=== PATIENT | male | born 1940 | race Caucasian/White ===

== ENCOUNTER 2017-12-17 18:17 | Observation (INO) ==
[2017-12-17 15:24] LABS: Basophils % 0.3 % (0.1-2.0); Eosinophils # 0.1 K/mm3 (0.0-0.4); Hematocrit 45.3 % (42.0-52.0); Hemoglobin 14.7 g/dL (14.1-18.0); Lymphocytes % 14.8 % (10-50); Mean Corpuscular HGB Conc 32.6 g/dL (31.8-35.4); Mean Corpuscular Hemoglobin 30.8 pg (27.0-31.2); Mean Corpuscular Volume 94.5 fl (80-94); Mean Platelet Volume 7.7 fl (7.4-10.4); Monocytes # 0.8 K/mm3 (0.1-1.0); Neutrophils # 10.3 K/mm3 (1.8-7.8); Neutrophils % 77.9 % (37.0-80.0); Platelet Count 250 K/mm3 (142-424); Red Blood Count 4.79 M/mm3 (4.60-6.20); Red Cell Distribution Width 13.8 % (11.5-17.5); White Blood Count 13.2 K/mm3 (4.8-10.8)
--- NOTE | 2017-12-17 18:23 | Emergency Department Note ---
ED Disposition Clinical Impression: Acute appendicitis Qualifiers: Acute appendicitis type: with localized peritonitis Appendicitis gangrene presence: without gangrene Appendicitis perforation presence: without perforation Appendicitis abscess presence: without abscess Qualified Code(s): K35.30 - Acute appendicitis with localized peritonitis, without perforation or gangrene Disposition: Still a Patient Condition on Discharge: Good Referrals: Marbin Hill [Primary Care Provider] - - Critical Care Critical Care Time: No Attestation: On , the high probability of a clinically significant, sudden or life threatening deterioration of the following system(s) required my full and direct attention, intervention and personal management. The time I documented below is in addition to time spent performing reported procedures but includes the following listed in this critical care notation. Medical Decision Making - Jesus Inquiry Pt receiving controlled substance: No Vital Signs: 12/17/17 18:25 12/17/17 18:52 Temperature 98.1 F Temperature Source Oral Pulse Rate [Left Radial] 65 60 Respiratory Rate 18 Blood Pressure [Right Arm] 113/68 120/60 Blood Pressure Mean [Right Arm] 83 80 Blood Pressure Source [Right Arm] Automatic Cuff Automatic Cuff Blood Pressure Position [Right Arm] Sitting Sitting 02 Sat by Pulse Oximetry 94 L 96 - Lab Data Lab Results 12/17/17 18:40: Sodium 136, Potassium 4.2, Chloride 100, Carbon Dioxide 25, Anion Gap 15.2 H, BUN 16, Creatinine 1.00, Estimated Creat Clear 62, Estimated GFR 72, Est GFR ( Amer) 88, Glucose 96, Calcium 9.2 Result diagrams: 12/17/17 18:40 - CT Data CT Scan: Abdomen, Pelvis Time Received: 18:[address] Reviewed: Yes: I have viewed the radiologist's interpretation Findings Narrative: IMPRESSION: 1. The findings are compatible with acute appendicitis. There is an appendicolith. No evidence of abscess or perforation. 2. Other nonacute findings as described above including nodular opacities in the lung bases, hypodense lesions of the liver and kidneys consistent with cysts, pancreatic atrophy with fatty infiltration, and diverticulosis of the colon. Please see above for detail Significant findings called to Dr. Hill on 12/17/2017 6:00 PM. Dictated By: Zander rFeeman MD Signed By: <Electronically signed by Zander Freeman MD in [place]> 12/17/17 1801 - ECG Data Tracing #1 EKG interpreted by Shailesh Marsh MD: Rhythm: sinus Rate: 65 [place]: normal Ectopy: none Conduction: normal ST Segment Changes: none T Wave Changes: none Q Waves: none No evidence of acute ischemia or injury Baseline artifact present, but I consider the EKG adequate for accurate interpretation. Normal electrocardiogram - Physician Consults Physician Consulted: Alex Time: 19:03 Reason -: Surgical Eval/Care Comment/Response: He will see the patient in the ED. General Adult HPI - General Stated complaint: right side pain Time Seen by Provider: 12/17/17 18:21 - History of Present Illness HPI narrative: Periumbilical pain that started on Friday 2 days ago. Has migrated to his right lower quadrant where it has settled yesterday. Has not eaten anything today, ate very little yesterday. Nausea, but no vomiting or fever. No diarrhea or constipation. Saw Dr. Hill in the office today who ordered an outpatient CT scan of his abdomen which has shown appendicitis, sent to the emergency room. - Related Data Home Medications Medication Instructions Recorded Confirmed Calcium Carbonate/Vitamin D3 500 mg PO DAILY 12/17/17 12/17/17 [Oscal +D 500mg Tab] Ezetimibe 10 mg PO DAILY 12/17/17 12/17/17 Famotidine [Pepcid 20mg Tablet] 20 mg PO DAILY 12/17/17 12/17/17 Lisinopril [Lisinopril 40mg Tablet] 40 mg PO DAILY 12/17/17 12/17/17 Nadolol [Corgard 20mg tablet] 20 mg PO DAILY 12/17/17 12/17/17 Omeprazole [Omeprazole 20mg 20 mg PO DAILY 12/17/17 12/17/17 Capsule] Primidone [Mysoline] 250 mg PO DAILY 12/17/17 12/17/17 Simvastatin 40 mg PO DAILY 12/17/17 12/17/17 Topiramate 100 mg PO DAILY 12/17/17 12/17/17 Allergies Allergy/AdvReac Type Severity Reaction Status Date / Time No Known Allergies Allergy Unverified 01/28/17 15:13 [facility] History I have reviewed the patient's past medical history: Yes ROS Obtained: Yes All systems reviewed & no additional complaints - Constitutional Constitutional: Denies fever(s) - Cardiovascular Cardiovascular: Denies chest pain - Respiratory Respiratory: No dyspnea - Gastrointestinal Gastrointestingal: Reports: abdominal pain, nausea. Denies: diarrhea, vomiting - Genitourinary Male Genitourinary: Denies difficulty urinating, Denies flank pain Physical Exam - General General appearance: alert, in no apparent distress - Head Head exam: atraumatic, normocephalic - Eye Eye exam: Present: normal appearance, PERRL, EOMI - ENT ENT exam: Present: mucous membranes moist - Neck Neck exam: Present: normal inspection - Chest Chest inspection: Present: normal inspection, symmetric chest wall rise - Respiratory Respiratory exam: Present: normal lung sounds bilaterally. Absent: respiratory distress - Cardiovascular Cardiovascular exam: Present: regular rate, normal rhythm, normal heart sounds - Abdominal Exam Abdominal exam: Present: soft, tenderness, guarding, tenderness at McBurney's Point. Absent: distention Abdominal tenderness: Present: RLQ - Extremities Exam Extremities exam: Present: normal inspection - Neurological Exam Neurological exam: Present: alert, oriented X3 - Psychiatric Psychiatric exam: Present: normal affect, normal mood - Skin Skin exam: Present: warm, dry
[2017-12-17 18:58] LABS: Anion Gap 15.2 mEq/L (5-15); Calcium 9.2 mg/dL (8.5-10.1); Potassium 4.2 mmoL/L (3.5-5.1)
--- NOTE | 2017-12-17 19:17 | History & Physical Report ---
HPI HPI: Abdominal pain Patient is a 77-year-old white male. He states that he began experiencing abdominal pain in the periumbilical location approximately 2 days ago. He states that his abdomen is "sore". Yesterday it became more localized to the right lower quadrant. He contacted his primary care provider's office this morning and it was recommended he present to the office. He was seen in Dr. Hill's office. Appendicitis was suspected and he was sent for outpatient CT scan. He underwent CT scan which revealed findings consistent with acute appendicitis. He was sent to the emergency department for evaluation and surgical consultation was obtained. [facility] History I have reviewed the patient's past medical history: Yes Medical History: Reports:: Cancer (Prostate) Denies:: Diabetes Mellitus Type 1, Diabetes Mellitus Type 2 Laterality Cases: Left: Arthroscopy Knee, Total Hip Replacement - *Social History Alcohol Intake: never - Psychiatric History Expresses thoughts of harming self/others: None Suicide Plan Description: No Plan Review of Systems - Review of Systems Review of systems:: pertinent systems reviewed and negative unless documented below - Constitutional Reports anorexia - Eyes Denies blind spots - ENT Denies abnormal hearing - *Cardiovascular Denies chest pain - *Respiratory Denies shortness of breath - *Gastrointestinal Reports abdominal pain - *Genitourinary Denies difficulty urinating Meds Home Medications Medication Instructions Recorded Confirmed Type Calcium Carbonate/Vitamin D3 500 mg PO DAILY 12/17/17 12/17/17 History [Oscal +D 500mg Tab] Ezetimibe 10 mg PO DAILY 12/17/17 12/17/17 History Famotidine [Pepcid 20mg Tablet] 20 mg PO DAILY 12/17/17 12/17/17 History Lisinopril [Lisinopril 40mg Tablet] 40 mg PO DAILY 12/17/17 12/17/17 History Nadolol [Corgard 20mg tablet] 20 mg PO DAILY 12/17/17 12/17/17 History Omeprazole [Omeprazole 20mg 20 mg PO DAILY 12/17/17 12/17/17 History Capsule] Primidone [Mysoline] 250 mg PO DAILY 12/17/17 12/17/17 History Simvastatin 40 mg PO DAILY 12/17/17 12/17/17 History Topiramate 100 mg PO DAILY 12/17/17 12/17/17 History Allergies Allergy/AdvReac Type Severity Reaction Status Date / Time No Known Allergies Allergy Unverified 01/28/17 15:13 Exam Vital signs and Labs for Last 24 Hours: Temp Pulse Resp BP Pulse Ox 98.1 F 60 18 120/60 96 12/17/17 18:25 12/17/17 18:52 12/17/17 18:25 12/17/17 18:52 12/17/17 18:52 Laboratory Results - last 24 hr 12/17/17 18:40: Sodium 136, Potassium 4.2, Chloride 100, Carbon Dioxide 25, Anion Gap 15.2 H, BUN 16, Creatinine 1.00, Estimated Creat Clear 62, Estimated GFR 72, Est GFR ( Amer) 88, Glucose 96, Calcium 9.2 I & O for Last 24 hours: Intake & Output 12/15/17 12/16/17 12/17/17 12/18/17 11:59 11:59 11:59 11:59 Weight 155 lb - Constitutional no acute distress - *Routine HEENT Exam Head: Present: normocephalic - *Routine Respiratory Exam Present: CTA bilaterally - *Routine Cardiovascular Exam Present: RRR - *Routine Abdominal Exam Present: soft, tenderness, guarding. Absent: rebound Results - Results Lab Results Last 24 Hours:: Laboratory Results - last 24 hr 12/17/17 18:40: Sodium 136, Potassium 4.2, Chloride 100, Carbon Dioxide 25, Anion Gap 15.2 H, BUN 16, Creatinine 1.00, Estimated Creat Clear 62, Estimated GFR 72, Est GFR ( Amer) 88, Glucose 96, Calcium 9.2 Assessment and Plan - Assessment and plan all Dx Assessment and Plan for all problems:: Patient has acute appendicitis. Plan for emergent appendectomy. Attempt laparoscopic with possibly open appendectomy.
--- NOTE | 2017-12-17 20:50 | Operative Note ---
Date of procedure: 12/17/17 Pre-op Diagnosis:: Acute appendicitis Post-op Diagnosis:: Same Procedure performed:: Laparoscopic appendectomy Surgeon:: Chay Johnson MD UPWARD BOUND DIRECTOR:: Ran Thomas Anesthesia: JANNIE Estimated blood loss (mL): 20 Clinical Note:: Patient is a 77-year-old white male. He states that in the evening of 12/15/17 he began developing some mid abdominal pain. Yesterday this became localized to the right lower quadrant. He had contacted his primary physician today the stating that he was having abdominal pain and soreness. He was seen and evaluated. He was sent for outpatient CT scan which revealed findings of acute appendicitis. Patient was then sent to the emergency department for evaluation and surgical consultation. He was seen as a consultation and plan was made for emergent appendectomy. Operative findings:: Patient had a significantly inflamed suppurative appendicitis with some focal necrosis without obvious perforation Operative note:: Consent was obtained patient was taken to the operating room. He was given preoperative intravenous antibiotics. He had Zheng catheter placed for bladder decompression. Abdomen was prepped and draped in the standard surgical fashion. Subumbilical skin incision was made and while performing abdominal wall lift Veress needle was inserted. CO2 pneumoperitoneum was achieved to 15 mmHg. 12 mm optical trocar was inserted at the umbilicus. Peritoneal contents were visualized. There was cloudy turbid fluid in the pelvis and right paracolic region. He was positioned in Trendelenburg left side down. 5 mm trocar was inserted in the suprapubic location. Additional 5 mm trocar was inserted in the right upper abdomen. 5 mm 30 degree laparoscope was inserted through the right upper abdominal trocar site. The appendix was identified. It was adherent to the lateral abdominal sidewall. It was able to be freed from inflammatory adhesions to the abdominal sidewall. The appendix was markedly inflamed and suppurative with some surrounding fibrinopurulent exudate. It was grasped with an endoscopic [place]. The mesoappendix was carefully divided with Adrian ultrasonic harmonic yuliana with care taken to coagulate the appendiceal artery in the process. Dissection was carried down to the appendiceal base. The appendix was divided at its base with an endoscopic CHRIST linear cutting stapling device. The appendix was placed within an Endo Catch retrieval device and removed from the peritoneal cavity via the umbilical trocar site. Pelvis and pericecal region were irrigated and aspirated until clear. Staple line was inspected for hemostasis and integrity which was assured. Trochars were then re moved as CO2 pneumoperitoneum was evacuated. Fascia at the umbilicus was closed with a 0 Vicryl [id number] suture. Local anesthetic was infiltrated. Skin was closed with 4-0 Monocryl in a subcuticular fashion. Steri-Strips and dressings were applied. Condition: stable Disposition: PACU Specimens:: Appendix Complications:: None immediately apparent
--- NOTE | 2017-12-17 21:01 | Progress Note ---
[facility] Anesthesia Checklist - Patient Identification Patient Identification: Arm Band, Verbal (Name & ) - Structural Data Admitted From: Emergency Dept Planned Operative Procedure/s: lap appy Consent for Planned Operative Procedure(s) Verified: Yes Verified Documents: History and Physical - NPO Status Verified Time NPO: 00:00 - Additional verifications Patient : No Anesthesia Reactions: No Hx Blood Transfusions: No Blood Transfusion Reaction: No Cephalosporin Allergy: No Previous Colonoscopy: Yes - Cardiovascular Assessment Heart Sounds: S1 & S2 Pulse Strength: Baseline Pulse Rhythm: Regular Peripheral Edema: No - Airway Assessment C-Spine Mobility Assessed: Yes TMJ Mobility Assessed: Yes Dentition: Good Dentition - Neurological Assessment Level of Consciousness: Awake, Alert, Appropriate Hx Seizures: Yes Numbness or tingling in extremities: Yes - Anesthesia Plan Anesthesia Risk discussed: Yes ASA Class: III Anesthesia Type: General [facility] History I have reviewed the patient's past medical history: Yes Medical History: Reports:: Cancer (Prostate), Hyperlipidemia, Hypertension Denies:: Diabetes Mellitus Type 1, Diabetes Mellitus Type 2 Laterality Cases: Left: Arthroscopy Knee, Bilateral: Total Hip Replacement Amputation: No Fractures: No - *Social History Alcohol Intake: never - Psychiatric History Expresses thoughts of harming self/others: None Suicide Plan Description: No Plan
--- NOTE | 2017-12-17 21:03 | Progress Note ---
[facility] Anesthesia Record Part II Discharge Time: 21:25 Destination: Medical Surgical Department PACU nurse assessment reviewed?: Yes Patient Condition:: Good Anesthesia Complications:: None
--- NOTE | 2017-12-17 21:03 | Progress Note ---
[facility] Anesthesia Record Part I Intake, IV Amount: 450 Estimated blood loss (mL): 10 Urine output (mL): 30 Blood Products used (#): none Blood Pressure: 108/58 SaO2: 94 Pulse Rate: 61 Respiratory Rate: 18 Temperature: 97.5 F Patient is:: Drowsy, Mask O2, Stable Stable to PACU at:: 20:55
[2017-12-18 06:54] LABS: Basophils % 0.3 % (0.1-2.0); Eosinophils % 0.1 % (0.1-12.0); Hematocrit 41.6 % (42.0-52.0); Hemoglobin 13.3 g/dL (14.1-18.0); Lymphocytes # 1.5 K/mm3 (0.7-4.5); Lymphocytes % 16.3 % (10-50); Mean Corpuscular HGB Conc 31.8 g/dL (31.8-35.4); Mean Corpuscular Hemoglobin 30.6 pg (27.0-31.2); Mean Corpuscular Volume 96.1 fl (80-94); Mean Platelet Volume 7.6 fl (7.4-10.4); Monocytes # 0.5 K/mm3 (0.1-1.0); Monocytes % 5.3 % (1.7-9.3); Neutrophils # 7.4 K/mm3 (1.8-7.8); Neutrophils % 78.1 % (37.0-80.0); Platelet Count 206 K/mm3 (142-424); Red Blood Count 4.33 M/mm3 (4.60-6.20); Red Cell Distribution Width 13.8 % (11.5-17.5); White Blood Count 9.4 K/mm3 (4.8-10.8)
[2017-12-18 07:02] LABS: Anion Gap 15.2 mEq/L (5-15); Calcium 8.6 mg/dL (8.5-10.1); Potassium 5.2 mmoL/L (3.5-5.1)
--- NOTE | 2017-12-18 08:11 | Pharmacy Consult Notes ---
[facility] Pharmacy VTE Monitoring - Patient Demographics Admission date: 12/17/17 Report Date: 12/18/17 Time: 08:11 Allergies/Adverse Reactions: Patient Allergies No Known Allergies Allergy (Verified 12/17/17 22:24) Height: 1.63 m Weight: 69.882 kg Patient Problems: Current Active Problems Acute appendicitis (Acute) - VTE Risk Labs: VTE Related Lab Results Hgb 13.3 g/dL (14.1-18.0) L 12/18/17 06:15 Hct 41.6 % (42.0-52.0) L 12/18/17 06:15 Plt Count 206 K/mm3 (142-424) 12/18/17 06:15 BUN 16 mg/dL (7-18) 12/18/17 06:15 Creatinine 1.09 mg/dL (0.70-1.30) 12/18/17 06:15 Estimated Creat Clear 56 mL/min (0-300) 12/18/17 06:15 Was VTE Risk Assessment Performed: Yes VTE Score: 7 VTE Risk Level: Moderate Risk Clinical Trial Participant: No - Prophylaxis VTE Prophylaxis Ordered?: Yes Types of VTE Prophylaxis: TEDS Knee High Location of Applied Device: Bilateral Lower Extremeties
--- NOTE | 2017-12-18 08:15 | Progress Note ---
Subjective Narrative: Patient complains of sore throat. Complains of pain at umbilical area. Minimal oral intake. Exam Vital signs and Labs for Last 24 Hours: Temp Pulse Resp BP Pulse Ox 98.4 F 75 16 107/68 L 95 12/18/17 04:15 12/18/17 04:15 12/18/17 04:15 12/18/17 04:15 12/18/17 04:15 Laboratory Results - last 24 hr 12/17/17 18:40: Sodium 136, Potassium 4.2, Chloride 100, Carbon Dioxide 25, Anion Gap 15.2 H, BUN 16, Creatinine 1.00, Estimated Creat Clear 62, Estimated GFR 72, Est GFR ( Amer) 88, Glucose 96, Calcium 9.2 12/18/17 06:15: WBC 9.4 D, RBC 4.33 L, Hgb 13.3 L, Hct 41.6 L, MCV 96.1 H, MCH 30.6, MCHC 31.8, RDW 13.8, Plt Count 206, MPV 7.6, Neut % (Auto) 78.1, Lymph % (Auto) 16.3, [place] % (Auto) 5.3, Eos % (Auto) 0.1, Baso % (Auto) 0.3, Neut # (Auto) 7.4, Lymph # (Auto) 1.5, [place] # (Auto) 0.5, Eos # (Auto) 0.0, Baso # (Auto) 0.0 12/18/17 06:15: Sodium 138, Potassium 5.2 H D, Chloride 102, Carbon Dioxide 26, Anion Gap 15.2 H, BUN 16, Creatinine 1.09, Estimated Creat Clear 56, Estimated GFR 66, Est GFR ( Amer) 79, Glucose 90, Calcium 8.6 I & O for Last 24 hours: Intake & Output 12/15/17 12/16/17 12/17/17 12/18/17 11:59 11:59 11:59 11:59 Intake Total 1703 / 1703 Output Total 202 / 202 Balance 1501 / 1501 Weight 154 lb 1 oz - *Routine Abdominal Exam Present: soft, distended Progress Note: A&P Assessment and Plan for All Diagnoses:: Patient has evidence of mild post-op ileus characterized by distension. Minimal oral intake. Has not ambulated. Ambulate patient. Continue IV antibiotics today. Recheck potassium in the morning due to finding of mild hyperkalemia on blood work this morning.
--- NOTE | 2017-12-18 10:38 | Progress Note ---
Internal Medicine - PN: Subj *Date: 12/18/17 *Time: 09:30 Interval history: Internal Medicine Consult Mr. Greenberg is a 77 year old male with a history of HTN, hyperlipidemia, prostate cancer with prostatectomy 5 years ago, cancerous growth left foot and chronic left hand tremor. He underwent laproscopic appendectomy last evening for appendicitis. See operative note. Patient has been followed closely by urology, oncology and neurology for his chronic medical conditions. Previous visits have been unremarkable with no recurrence. He had no CV or pulmonary history with exception of HTN which has been well controlled. He denies any chest pain, shortness of breath or other CV symptoms. He walks for 20 minutes most days without difficulty. Labs reviewed which look good with exception of mild hyperkalemia. Possible related to slight hemolysis as potassium was normal on admission. He is using the urinal without difficulty. Has has urinary frequency which is at baseline, this has been an ongoing issue since his prostatectomy. Denies other urinary symptoms. No cough or shortness of breath. Reports some abdominal distention, mild pain. He was able to get out of bed to the chair with PT without dizziness or significant pain. Patient reports minimal oral intake. He is not passing any gas at this point. Exam Vital signs and Labs for Last 24 Hours: Temp Pulse Resp BP Pulse Ox 98.6 F 72 18 111/63 93 L 12/18/17 08:00 12/18/17 08:00 12/18/17 08:00 12/18/17 08:00 12/18/17 08:00 Laboratory Results - last 24 hr 12/17/17 18:40: Sodium 136, Potassium 4.2, Chloride 100, Carbon Dioxide 25, Anion Gap 15.2 H, BUN 16, Creatinine 1.00, Estimated Creat Clear 62, Estimated GFR 72, Est GFR ( Amer) 88, Glucose 96, Calcium 9.2 12/18/17 06:15: WBC 9.4 D, RBC 4.33 L, Hgb 13.3 L, Hct 41.6 L, MCV 96.1 H, MCH 30.6, MCHC 31.8, RDW 13.8, Plt Count 206, MPV 7.6, Neut % (Auto) 78.1, Lymph % (Auto) 16.3, [place] % (Auto) 5.3, Eos % (Auto) 0.1, Baso % (Auto) 0.3, Neut # (Auto) 7.4, Lymph # (Auto) 1.5, [place] # (Auto) 0.5, Eos # (Auto) 0.0, Baso # (Auto) 0.0 12/18/17 06:15: Sodium 138, Potassium 5.2 H D, Chloride 102, Carbon Dioxide 26, Anion Gap 15.2 H, BUN 16, Creatinine 1.09, Estimated Creat Clear 56, Estimated GFR 66, Est GFR ( Amer) 79, Glucose 90, Calcium 8.6 I & O for Last 24 hours: Intake & Output 12/15/17 12/16/17 12/17/17 12/18/17 11:59 11:59 11:59 11:59 Intake Total 1703 / 1703 Output Total Balance 1501 / 1501 Weight 154 lb 1 oz Narrative: Alert and oriented x3. Rate and rhythm regular. No murmur. No JVD. No carotid bruit. Trace LE edema. Lung sounds clear and equal. Abdomen is noted to be somwehat distended, steri-strips clean, dry and intact. Complete abdominal assessment deferred to Dr. Johnson. Clear, yellow urine noted in urinal. Assessment and Plan (1) History of prostatectomy Current visit: Yes Status: Chronic Category: Surgical Code(s): Z90.79 - Acquired absence of other genital organ(s) (2) H/O prostate cancer Current visit: Yes Status: Chronic Category: Medical Code(s): Z85.46 - Personal history of malignant neoplasm of prostate (3) Essential (primary) hypertension Current visit: Yes Status: Chronic Category: Medical Code(s): I10 - Essential (primary) hypertension (4) Hyperkalemia Current visit: Yes Status: Acute Category: Medical Code(s): E87.5 - Hyperkalemia (5) Tremor of left hand Current visit: Yes Status: Chronic Category: Medical Code(s): R25.1 - Tremor, unspecified (6) Acute appendicitis Current visit: Yes Status: Acute Qualifiers: Acute appendicitis type: with localized peritonitis Appendicitis gangrene presence: without gangrene Appendicitis perforation presence: without perforation Appendicitis abscess presence: without abscess Qualified Code(s): K35.30 - Acute appendicitis with localized peritonitis, without perforation or gangrene Category: Medical Code(s): K35.80 - Unspecified acute appendicitis - Assessment and plan all Dx Assessment and Plan for all problems:: Home meds reviewed and have been restarted appropriately. Decrease IVF's. Repeat potassium in the am. Start incentive spirometry 10 times per hour while awake.
[2017-12-19 06:44] LABS: Anion Gap 14.2 mEq/L (5-15); Calcium 8.2 mg/dL (8.5-10.1); Potassium 3.2 mmoL/L (3.5-5.1)
[2017-12-19 06:45] LABS: Basophils % 0.5 % (0.1-2.0); Eosinophils # 0.1 K/mm3 (0.0-0.4); Eosinophils % 2.1 % (0.1-12.0); Hematocrit 35.2 % (42.0-52.0); Lymphocytes # 1.3 K/mm3 (0.7-4.5); Mean Corpuscular HGB Conc 32.2 g/dL (31.8-35.4); Mean Corpuscular Hemoglobin 30.8 pg (27.0-31.2); Mean Corpuscular Volume 95.7 fl (80-94); Mean Platelet Volume 7.8 fl (7.4-10.4); Monocytes # 0.5 K/mm3 (0.1-1.0); Monocytes % 9.4 % (1.7-9.3); Neutrophils # 3.4 K/mm3 (1.8-7.8); Neutrophils % 63.1 % (37.0-80.0); Platelet Count 198 K/mm3 (142-424); Red Blood Count 3.68 M/mm3 (4.60-6.20); Red Cell Distribution Width 13.9 % (11.5-17.5); White Blood Count 5.3 K/mm3 (4.8-10.8)
[2017-12-19 06:54] LABS: Hemoglobin 11.4 g/dL (14.1-18.0)
--- NOTE | 2017-12-19 08:04 | Progress Note ---
Subjective Patient reports: feels better Narrative: Has had a couple of bowel movements. Exam Vital signs and Labs for Last 24 Hours: Temp Pulse Resp BP Pulse Ox 97.8 F 60 18 100/50 L 96 12/19/17 04:00 12/19/17 04:00 12/19/17 04:00 12/19/17 04:00 12/19/17 04:00 Laboratory Results - last 24 hr 12/17/17 : WBC 13.2 H, RBC 4.79, Hgb 14.7, Hct 45.3, MCV 94.5 H, MCH 30.8, MCHC 32.6, RDW 13.8, Plt Count 250, MPV 7.7, Neut % (Auto) 77.9, Lymph % (Auto) 14.8, [place] % (Auto) 6.0, Eos % (Auto) 1.0, Baso % (Auto) 0.3, Neut # (Auto) 10.3 H, Lymph # (Auto) 2.0, [place] # (Auto) 0.8, Eos # (Auto) 0.1, Baso # (Auto) 0.0 12/17/17 : Urine Color Yellow, Urine Appearance Clear, Urine pH 5.5, Ur Specific [place] >= 1.030, Urine Protein Negative, Urine Glucose (UA) Negative, Urine Ketones 1+, Urine Blood 1+, Urine Nitrate Negative, Urine Bilirubin Negative, Urine Urobilinogen 0.2, Ur Leukocyte Esterase Negative, Urine RBC 5-10, Urine WBC Occasional, Urine Bacteria 1+ 12/19/17 06:02: WBC 5.3 D, RBC 3.68 L, Hgb 11.4 L D, Hct 35.2 L, MCV 95.7 H, MCH 30.8, MCHC 32.2, RDW 13.9, Plt Count 198, MPV 7.8, Neut % (Auto) 63.1, Lymph % (Auto) 25.0, [place] % (Auto) 9.4 H, Eos % (Auto) 2.1, Baso % (Auto) 0.5, Neut # (Auto) 3.4, Lymph # (Auto) 1.3, [place] # (Auto) 0.5, Eos # (Auto) 0.1, Baso # (Auto) 0.0 12/19/17 06:02: Sodium 141, Potassium 3.2 L D, Chloride 106, Carbon Dioxide 24, Anion Gap 14.2, BUN 12, Creatinine 0.99, Estimated Creat Clear 61, Estimated GFR 73, Est GFR ( Amer) 89, Glucose 84, Calcium 8.2 L I & O for Last 24 hours: Intake & Output 12/16/17 12/17/17 12/18/17 12/19/17 11:59 11:59 11:59 11:59 Intake Total 2633 / 2633 2444 / 2444 Output Total 232 / 232 350 / 350 Balance 2401 / 2401 2093 / 2093 Weight 154 lb 1 oz - *Routine Abdominal Exam Present: soft. Absent: tenderness Progress Note: A&P (1) History of prostatectomy Status: Chronic Current Visit: Yes (2) H/O prostate cancer Status: Chronic Current Visit: Yes (3) Essential (primary) hypertension Status: Chronic Current Visit: Yes (4) Hyperkalemia Status: Acute Current Visit: Yes (5) Tremor of left hand Status: Chronic Current Visit: Yes (6) Acute appendicitis Status: Acute Current Visit: Yes Assessment and Plan for All Diagnoses:: Discharge home.
--- NOTE | 2017-12-19 08:09 | Discharge Summary ---
General - General Admission date:: 12/17/17 Discharge date: 12/19/17 HPI HPI: Patient is a 77-year-old white male. He states that in the evening of 12/15/17 he began developing some mid abdominal periumbilical pain. On 12/16/17 this became localized to the right lower quadrant. He had contacted his primary physician on 12/17/17 stating that he was having abdominal pain and soreness. He was seen and evaluated. He was sent for outpatient CT scan which revealed findings of acute appendicitis. Patient was then sent to the emergency department for evaluation and surgical consultation. He was seen as a consultation and plan was made for emergent appendectomy. Hospital Course Hospital Course: Was taken directly to the operating room at which time he underwent laparoscopic appendectomy. He was found to have a significantly inflamed acute appendicitis with some focal necrosis but without perforation or established diffuse peritonitis. Please see operative dictation for complete details. He was admitted postoperatively and continued on perioperative antibiotics of Zosyn. He was given a full liquid diet. The following morning patient had minimal oral intake. He had some complaints of sore throat and umbilical soreness. He had not ambulated. Interestingly potassium on postoperative day #1 was 5.2. Internal medicine was consulted. Patient was ambulated several times in the hallways with nursing assistance. He tolerated full liquid diet without difficulty and had a couple of bowel movements. The following morning, on postop day #2, his white blood cell count was normalized, potassium was 3.2. Arrangements were made for discharge home at that time. Objective Vital signs: Temp Pulse Resp BP Pulse Ox 97.8 F 60 18 100/50 L 96 12/19/17 04:00 12/19/17 04:00 12/19/17 04:00 12/19/17 04:00 12/19/17 04:00 - *Routine HEENT Exam Head: Present: normocephalic - *Routine Abdominal Exam Present: soft Results Labs on day of discharge: Labs from last 24 hours 12/19/17 12/19/17 12/17/17 06:02 06:02 Unknown WBC 5.3 D RBC 3.68 L Hgb 11.4 L D Hct 35.2 L MCV 95.7 H MCH 30.8 MCHC 32.2 RDW 13.9 Plt Count 198 MPV 7.8 Neut % (Auto) 63.1 Lymph % (Auto) 25.0 [place] % (Auto) 9.4 H Eos % (Auto) 2.1 Baso % (Auto) 0.5 Neut # (Auto) 3.4 Lymph # (Auto) 1.3 Howard # (Auto) 0.5 Eos # (Auto) 0.1 Baso # (Auto) 0.0 Sodium 141 Potassium 3.2 L D Chloride 106 Carbon Dioxide 24 Anion Gap 14.2 BUN 12 Creatinine 0.99 Estimated Creat Clear 61 Estimated GFR 73 Est GFR ( Amer) 89 Glucose 84 Calcium 8.2 L Urine Color Yellow Urine Appearance Clear Urine pH 5.5 Ur Specific [place] >= 1.030 Urine Protein Negative Urine Glucose (UA) Negative Urine Ketones 1+ Urine Blood 1+ Urine Nitrate Negative Urine Bilirubin Negative Urine Urobilinogen 0.2 Ur Leukocyte Esterase Negative Urine RBC 5-10 Urine WBC Occasional Urine Bacteria 1+ 12/17/17 Unknown WBC 13.2 H RBC 4.79 Hgb 14.7 Hct 45.3 MCV 94.5 H MCH 30.8 MCHC 32.6 RDW 13.8 Plt Count 250 MPV 7.7 Neut % (Auto) 77.9 Lymph % (Auto) 14.8 Howard % (Auto) 6.0 Eos % (Auto) 1.0 Baso % (Auto) 0.3 Neut # (Auto) 10.3 H Lymph # (Auto) 2.0 Howard # (Auto) 0.8 Eos # (Auto) 0.1 Baso # (Auto) 0.0 Sodium Potassium Chloride Carbon Dioxide Anion Gap BUN Creatinine Estimated Creat Clear Estimated GFR Est GFR ( Amer) Glucose Calcium Urine Color Urine Appearance Urine pH Ur Specific [place] Urine Protein Urine Glucose (UA) Urine Ketones Urine Blood Urine Nitrate Urine Bilirubin Urine Urobilinogen Ur Leukocyte Esterase Urine RBC Urine WBC Urine Bacteria DS: Diagnosis - Discharge Diagnosis (1) History of prostatectomy Status: Chronic (2) H/O prostate cancer Status: Chronic (3) Essential (primary) hypertension Status: Chronic (4) Hyperkalemia Status: Acute (5) Tremor of left hand Status: Chronic (6) Acute appendicitis Status: Acute Discharge Plan - Patient Discharge Instructions ACTIVITY: No heavy lifting DIET: advance to your usual diet Patient Instructions: DI for Surgical Site Infection - Follow up Plan Follow up with: Marbin Hill [Primary Care Provider] - Chay Johnson MD [Staff Physician] - 2 weeks Disposition: Home, Self-Half-Way Medications: Home Medications Medication Instructions Recorded Confirmed Type Calcium Carbonate/Vitamin D3 500 mg PO DAILY 12/17/17 12/17/17 History [Oscal +D 500mg Tab] Ezetimibe 10 mg PO DAILY 12/17/17 12/17/17 History Famotidine [Pepcid 20mg Tablet] 20 mg PO HS 12/17/17 12/18/17 History Lisinopril [Lisinopril 40mg Tablet] 40 mg PO DAILY 12/17/17 12/17/17 History Nadolol [Corgard 20mg tablet] 20 mg PO DAILY 12/17/17 12/17/17 History Omeprazole [Omeprazole 20mg 20 mg PO DAILY 12/17/17 12/17/17 History Capsule] Primidone [Mysoline] 250 mg PO DAILY 12/17/17 12/17/17 History Simvastatin 40 mg PO HS 12/17/17 12/18/17 History Topiramate 100 mg PO DAILY 12/17/17 12/17/17 History Prescriptions/Medication Reconciliation: Continue Simvastatin 40 mg PO HS Primidone [Mysoline] 250 mg PO DAILY Omeprazole [Omeprazole 20mg Capsule] 20 mg PO DAILY Nadolol [Corgard 20mg tablet] 20 mg PO DAILY Lisinopril [Lisinopril 40mg Tablet] 40 mg PO DAILY Famotidine [Pepcid 20mg Tablet] 20 mg PO HS Ezetimibe 10 mg PO DAILY Calcium Carbonate/Vitamin D3 [Oscal +D 500mg Tab] 500 mg PO DAILY Topiramate 100 mg PO DAILY
--- NOTE | 2017-12-19 09:00 | Progress Note ---
Internal Medicine - PN: Subj *Date: 12/19/17 *Time: 09:00 Interval history: Patient did well overnight. Tolerating oral intake. Is passing gas and had 2 bowel movements last night. Minimal abdominal pain today. Denies any chest pain, shortness of breath, cough, fevers. Dynamically stable Exam Vital signs and Labs for Last 24 Hours: Temp Pulse Resp BP Pulse Ox 97.8 F 60 18 100/50 L 96 12/19/17 04:00 12/19/17 04:00 12/19/17 04:00 12/19/17 04:00 12/19/17 04:00 Laboratory Results - last 24 hr 12/17/17 : WBC 13.2 H, RBC 4.79, Hgb 14.7, Hct 45.3, MCV 94.5 H, MCH 30.8, MCHC 32.6, RDW 13.8, Plt Count 250, MPV 7.7, Neut % (Auto) 77.9, Lymph % (Auto) 14.8, [place] % (Auto) 6.0, Eos % (Auto) 1.0, Baso % (Auto) 0.3, Neut # (Auto) 10.3 H, Lymph # (Auto) 2.0, [place] # (Auto) 0.8, Eos # (Auto) 0.1, Baso # (Auto) 0.0 12/17/17 : Urine Color Yellow, Urine Appearance Clear, Urine pH 5.5, Ur Specific [place] >= 1.030, Urine Protein Negative, Urine Glucose (UA) Negative, Urine Ketones 1+, Urine Blood 1+, Urine Nitrate Negative, Urine Bilirubin Negative, Urine Urobilinogen 0.2, Ur Leukocyte Esterase Negative, Urine RBC 5-10, Urine WBC Occasional, Urine Bacteria 1+ 12/19/17 06:02: WBC 5.3 D, RBC 3.68 L, Hgb 11.4 L D, Hct 35.2 L, MCV 95.7 H, MCH 30.8, MCHC 32.2, RDW 13.9, Plt Count 198, MPV 7.8, Neut % (Auto) 63.1, Lymph % (Auto) 25.0, [place] % (Auto) 9.4 H, Eos % (Auto) 2.1, Baso % (Auto) 0.5, Neut # (Auto) 3.4, Lymph # (Auto) 1.3, [place] # (Auto) 0.5, Eos # (Auto) 0.1, Baso # (Auto) 0.0 12/19/17 06:02: Sodium 141, Potassium 3.2 L D, Chloride 106, Carbon Dioxide 24, Anion Gap 14.2, BUN 12, Creatinine 0.99, Estimated Creat Clear 61, Estimated GFR 73, Est GFR ( Amer) 89, Glucose 84, Calcium 8.2 L I & O for Last 24 hours: Intake & Output 12/16/17 12/17/17 12/18/17 12/19/17 23:59 23:59 23:59 23:59 Intake Total 1225 / 1225 2968 / 2968 884 / 884 Output Total 552 / 552 Balance 1195 / 1195 2416 / 2416 884 / 884 Weight 69.882 kg 69.882 kg Narrative: Alert and oriented x3. Rate and rhythm regular. No murmur. No JVD. No carotid bruit. Trace LE edema. Lung sounds clear and equal. Abdomen is noted to be somwehat distended, steri-strips clean, dry and intact. Minimal tenderne ss in abdomen. No bleeding from surgical incisions. Assessment and Plan (1) History of prostatectomy Current visit: Yes Status: Chronic Category: Surgical Code(s): Z90.79 - Acquired absence of other genital organ(s) (2) H/O prostate cancer Current visit: Yes Status: Chronic Category: Medical Code(s): Z85.46 - Personal history of malignant neoplasm of prostate (3) Essential (primary) hypertension Current visit: Yes Status: Chronic Category: Medical Code(s): I10 - Essential (primary) hypertension (4) Hyperkalemia Current visit: Yes Status: Acute Category: Medical Code(s): E87.5 - Hyperkalemia (5) Tremor of left hand Current visit: Yes Status: Chronic Category: Medical Code(s): R25.1 - Tremor, unspecified (6) Acute appendicitis Current visit: Yes Status: Acute Qualifiers: Acute appendicitis type: with localized peritonitis Appendicitis gangrene presence: without gangrene Appendicitis perforation presence: without perforation Appendicitis abscess presence: without abscess Qualified Code(s): K35.30 - Acute appendicitis with localized peritonitis, without perforation or gangrene Category: Medical Code(s): K35.80 - Unspecified acute appendicitis - Assessment and plan all Dx Assessment and Plan for all problems:: Patient tolerating oral intake. Medically stable for discharge home, agree with plan per surgery's note. Resume all home medications.
== END 2017-12-19 10:07 | disposition home or self-care (01) ==
LOC: ER 18:17 → SDC 19:43 → 2ND 19:43 → ER 19:44
PROVIDERS: ADMIT Surgery; ATTEND Surgery

== ENCOUNTER → 2018-01-15 11:59 | Outpatient (CLI) | payer MEDICARE, BC, SELFPAY ==
[2018-01-15 13:12] LABS: Blood Urea Nitrogen 14 mg/dL (7-18); Estimated Glomerular Filt Rate 82 ml/min (>60); GFR (African American) 99 ML/MIN (>60)
== END ==
PROVIDERS: Visit Provider Surgery
DX: K35.80 Unspecified acute appendicitis (principal)
CPT/HCPCS: 36415; 82565; 84520

== ENCOUNTER → 2018-01-16 09:47 | Outpatient (CLI) | payer MEDICARE, BC, SELFPAY ==
--- NOTE | 2018-01-16 09:48 | CT_ITS ---
CT abdomen pelvis w con CLINICAL INDICATION: Lower abdominal pain ITS.REASON: abdominal pain ORDERING PHYSICIAN: Chay Johnson MD PATIENT AGE: 77 years COMPARISON: None TECHNIQUE: Axial images obtained with sagittal and coronal reformats. All CT scans at the facility use one or more dose reduction, viz: automated exposure control, ma/kV adjustment per patient size (including targeted exams where dose is matched to indication, i.e. head), or iterative reconstruction technique. PROCEDURE: Oral Contrast: Redicat IV Contrast: 75 mL of Isovue-370. FINDINGS: There is a 4 mm noncalcified nodule in the right lung base which is incompletely imaged probably unchanged. There are coronary artery calcifications. There are mild fibrotic changes in the left lung base. There are at least 3 hypodensities of the liver the largest in the right hepatic lobe posterior laterally is 7 mm and may be due to small cysts. The gallbladder has an unremarkable appearance as does the spleen and right adrenal gland. There is diffuse fatty infiltration of the pancreas. Nodularity involves the left adrenal gland is unchanged. There are bilateral renal cysts measuring up to 6 cm in the lower pole on the right. No hydronephrosis. No renal or ureteral calculi are evident. There has been an interval appendectomy. No evidence of abscess or fluid collection at the lobectomy site. There is a small amount fluid in the the pelvis and is nonspecific. Considerable artifact is present from bilateral hip prosthesis. Multilevel degenerative disc disease noted. IMPRESSION: 1. Interval appendectomy. 2. No evidence of abscess. No radio opaque foreign bodies other than the bilateral hip prosthesis. 3. Small amount of fluid in the pelvis nonspecific 4. Other nonacute findings as described above
== END ==
PROVIDERS: PCP Internal Medicine; Visit Provider Surgery
DX: K35.80 Unspecified acute appendicitis (principal)
CPT/HCPCS: 74177; Q9967

== ENCOUNTER → 2018-07-30 15:27 | Outpatient (CLI) | payer MEDICARE, BC, SELFPAY ==
[2018-07-30 15:55] LABS: Basophils # 0.1 K/mm3 (0-0.2); Basophils % 0.9 % (0.1-2.0); Eosinophils # 0.2 K/mm3 (0.0-0.4); Eosinophils % 2.6 % (0.1-12.0); Hemoglobin 13.8 g/dL (14.1-18.0); Lymphocytes # 2.1 K/mm3 (0.7-4.5); Lymphocytes % 32.8 % (10-50); Mean Corpuscular HGB Conc 30.6 g/dL (31.8-35.4); Mean Corpuscular Hemoglobin 28.7 pg (27.0-31.2); Mean Corpuscular Volume 93.7 fl (80-94); Mean Platelet Volume 7.5 fl (7.4-10.4); Monocytes # 0.4 K/mm3 (0.1-1.0); Neutrophils # 3.7 K/mm3 (1.8-7.8); Neutrophils % 57.8 % (37.0-80.0); Platelet Count 290 K/mm3 (142-424); Red Blood Count 4.81 M/mm3 (4.60-6.20); Red Cell Distribution Width 13.8 % (11.5-17.5); White Blood Count 6.4 K/mm3 (4.8-10.8)
[2018-07-30 16:52] LABS: Alanine Aminotransferase 21 U/L (12-78); Albumin Level 3.6 gm/dL (3.4-5.0); Albumin/Globulin Ratio 1.1 (1.1-1.8); Alkaline Phosphatase 89 U/L (46-116); Anion Gap 15.6 mEq/L (5-15); Aspartate Amino Transferase 18 U/L (15-37); Bilirubin,Total 0.3 mg/dL (0.2-1.0); Blood Urea Nitrogen 16 mg/dL (7-18); Calcium 8.9 mg/dL (8.5-10.1); Carbon Dioxide 25 mmol/L (21.0-32.0); Chloride 105 mmol/L (98-107); Creatinine,Serum 0.99 mg/dL (0.70-1.30); Estimated Glomerular Filt Rate 73 ml/min (>60); GFR (African American) 89 ML/MIN (>60); Globulin 3.4 gm/dl (1.3-3.2); Glucose 91 mg/dL (74-106); Potassium 4.6 mmoL/L (3.5-5.1); Sodium 141 mmol/L (136-145)
== END ==
PROVIDERS: PCP Internal Medicine; Visit Provider Otolaryngology
DX: Z01.818 Encounter for other preprocedural examination (principal); L98.9 Disorder of the skin and subcutaneous tissue, unspecified
CPT/HCPCS: 36415; 80053; 85025; 93005

== ENCOUNTER → 2018-11-13 10:23 | Outpatient (CLI) | payer MEDICARE, BC, SELFPAY ==
[2018-11-13 10:48] LABS: Basophils # 0.1 K/mm3 (0-0.2); Basophils % 1.2 % (0.1-2.0); Eosinophils # 0.2 K/mm3 (0.0-0.4); Eosinophils % 2.2 % (0.1-12.0); Hematocrit 44.1 % (42.0-52.0); Lymphocytes # 2.1 K/mm3 (0.7-4.5); Lymphocytes % 29.6 % (10-50); Mean Corpuscular HGB Conc 31.7 g/dL (31.8-35.4); Mean Corpuscular Hemoglobin 30.9 pg (27.0-31.2); Mean Corpuscular Volume 97.3 fl (80-94); Mean Platelet Volume 7.6 fl (7.4-10.4); Monocytes # 0.4 K/mm3 (0.1-1.0); Neutrophils # 4.3 K/mm3 (1.8-7.8); Neutrophils % 61.1 % (37.0-80.0); Platelet Count 267 K/mm3 (142-424); Red Blood Count 4.53 M/mm3 (4.60-6.20)
--- NOTE | 2018-11-13 11:32 | CT_ITS ---
PROCEDURE: CT ABDOMEN PELVIS WO CON CLINICAL HISTORY: RT SIDE PAIN,KIDNEY STONE PROTOCOL,BLOOD IN URINE COMPARISON: 01/16/2018. TECHNIQUE: Axial images obtained with sagittal and coronal reformats. All CT scans at the facility use one or more dose reduction, viz: automated exposure control, ma/kV adjustment per patient size (including targeted exams where dose is matched to indication, i.e. head), or iterative reconstruction technique. FINDINGS: There is a 5.7 millimeter noncalcified nodule involving lateral segment right middle lobe, image 7. There is a no other small oval-shaped noncalcified nodular focus measuring 5 millimeters a adjacent to the right major fissure. There is a stable 5 millimeter hypodense focus in the periphery of the liver which is nonspecific although likely benign. Gallbladder and pancreas are stable with stable fatty infiltration of the pancreas which could occur with diabetes. Spleen is normal. There is stable adrenal gland shape enlargement of the left adrenal gland suggesting hyperplasia. Right adrenal gland is normal. There are fluid attenuation renal cortical lesions bilaterally suggesting cysts. There are no renal stones and there is no hydronephrosis or hydroureter or ureteral stone. There is no aortic dilatation. GI tract is in unremarkable. Because of the metallic densities involving the hip areas there is artifact which obscures most of the pelvic structures. Urinary bladder cannot be adequately evaluated because of the artifact. There is no acute osseous process. IMPRESSION: Liver and renal hypodense lesions are stable and likely benign. Noncalcified right middle lobe nodule and adjacent to the right major fissure were not in the field of view on the prior exam. Because of size suggest follow-up CT chest at 6-12 months. No renal stones or renal obstructive changes. If symptoms persist especially if gross hematuria suggest urologic consultation since urinary bladder cannot be well seen on this study because of the artifact. Not discussed above are stable nodular densities partially calcified involving the posterior left subcutaneous soft tissues at the lower pelvic area likely from injection granulomas. Dictated by: Alden Clifford 11/13/2018 12:52 Electronically signed by Alden Clifford in [place] 11/13/2018 12:52
== END ==
LOC: LAB.DROPOF 10:28 → RAD 11:22
PROVIDERS: PCP Internal Medicine; Visit Provider Internal Medicine
DX: R10.31 Right lower quadrant pain (principal)
CPT/HCPCS: 74176; 85025

== ENCOUNTER → 2019-12-24 14:06 | Outpatient (CLI) | payer MEDICARE, BC, SELFPAY ==
--- NOTE | 2019-12-24 14:09 | CT_ITS ---
PROCEDURE: CT CHEST WO CON follow up, lung nodule...seen on A/P, 11/13/18 no symptoms at this time CLINICAL INDICATION: R MIDDLE LOBE NODULE, 6 MONTH FOLLOW UP COMPARISON: CR CXR CHEST(2 VIEWS-NOT PORTABLE) from 02/04/[address] ABDOMEN PELVIS WO CON from 11/13/2018 TECHNIQUE: Axial images obtained with sagittal and coronal reformats. All CT scans at the facility use one or more dose reduction, viz: automated exposure control, ma/kV adjustment per patient size (including targeted exams where dose is matched to indication, i.e. head), or iterative reconstruction technique. FINDINGS: HEART AND MEDIASTINAL STRUCTURES: Increased density is present in the upper thoracic esophageal region on image number 6 through 10 with a small calcification at this area. Esophageal mass is a consideration. Upper endoscopy or barium swallow may provide further evaluation. This could also be related to nondistention. Coronary artery calcifications are present. No mediastinal adenopathy. No hilar adenopathy. LUNGS AND PLEURAL SPACES: There is a 6 mm noncalcified nodule in the right middle lobe not significantly changed. In addition, there is a 6 mm fissural nodule in the right major fissure and a 3 mm noncalcified nodule in the right middle lobe posteriorly. These are not significantly changed. Noncalcified 4 mm nodules present in the left apex and may be due to an area of scarring. Atelectatic/fibrotic changes are present in the left lower lobe posteriorly. BONY STRUCTURES: There are degenerative changes in the thoracic spine. There is and sclerotic lesion involving the right 3rd rib laterally. This measures 2.6 cm in length. This is not causing in the expansion and could be related to a area of bone infarction. Consider six-month follow-up to confirm stability as other blastic lesions are not excluded. UPPER ABDOMEN: There is a stable 8 mm hypodensity in the right hepatic lobe posteriorly. There is diffuse pancreatic fatty infiltration. ADDITIONAL FINDINGS: No other significant abnormalities. IMPRESSION: 1. No change in the right middle lobe nodule and the fissural nodules on the right. 2. There is increased soft tissue density in the upper thoracic esophagus. While this could be related to nondistention, 1 cannot exclude the possibility of a esophagus mass. Suggest upper endoscopy or barium swallow for further evaluation. 3. Sclerotic lesion of the right 3rd rib possibly due to a bone infarction. Recommend six-month follow-up. 4. Other nonacute findings as described above Dictated by: Zander Freeman MD 12/25/2019 07:50 Zander Freeman MD in [place] 12/25/2019 07:50
== END ==
PROVIDERS: PCP Internal Medicine; Visit Provider Internal Medicine
DX: R91.1 Solitary pulmonary nodule (principal)
CPT/HCPCS: 71250

== ENCOUNTER → 2020-01-24 08:36 | Outpatient (CLI) | payer MEDICARE, BC, SELFPAY ==
--- NOTE | 2020-01-24 08:39 | FL_ITS ---
PROCEDURE: FL BARIUM SWALLOW CLINICAL INDICATION: DIFFICULTY SWALLOWING COMPARISON: CT CT CHEST WO CON from 12/24/2019 TECHNIQUE: In the upright position the patient was observed to swallow barium in both the AP and lateral view. The cervical esophagus was examined under fluoroscopy with images obtained. The patient was then placed prone in the right anterior oblique position and was observed to swallow barium with Valsalva technique . FLUOROSCOPY TIME: 45 seconds FINDINGS: No esophageal mass. No annular constricting lesion. Normal peristalsis. No mucosal abnormalities. No hernias. The abnormality noted on the recent CT scan may have been due to nondistention and mucosal collapse with some nonspecific calcification IMPRESSION: Negative barium swallow. Dictated by: Zander Freeman MD 01/24/2020 16:47 Zander Freeman MD in [place] 01/24/2020 16:47
== END ==
PROVIDERS: PCP Internal Medicine; Visit Provider Internal Medicine
DX: R13.10 Dysphagia, unspecified (principal)
CPT/HCPCS: 74220

== ENCOUNTER → 2020-04-14 16:14 | Outpatient (CLI) | payer MEDICARE, BC, SELFPAY | PROVIDERS: PCP Internal Medicine; Visit Provider Internal Medicine | DX: Z20.822 Contact with and (suspected) exposure to COVID-19 (principal); R05 Cough; R50.9 Fever, unspecified | CPT/HCPCS: U0003 ==

== ENCOUNTER → 2020-10-06 13:31 | Outpatient (CLI) | payer MEDICARE, BC, SELFPAY | PROVIDERS: Visit Provider Internal Medicine Gastroenterology | DX: Z01.812 Encounter for preprocedural laboratory examination (principal); Z20.822 Contact with and (suspected) exposure to COVID-19; U07.1 COVID-19; Z12.11 Encounter for screening for malignant neoplasm of colon | CPT/HCPCS: U0003 ==

== ENCOUNTER → 2021-02-20 12:39 | Outpatient (CLI) | payer MEDICARE, BC, SELFPAY ==
[2021-02-20 13:15] LABS: Basophils # 0.1 K/mm3 (0-0.2); Eosinophils # 0.1 K/mm3 (0.0-0.4); Eosinophils % 2.2 % (0.1-12.0); Hematocrit 43.8 % (42.0-52.0); Hemoglobin 13.6 g/dL (14.1-18.0); Lymphocytes % 36.8 % (10-50); Mean Corpuscular HGB Conc 31.1 g/dL (31.8-35.4); Mean Corpuscular Hemoglobin 31.2 pg (27.0-31.2); Mean Corpuscular Volume 100.4 fl (80-94); Mean Platelet Volume 8.7 fl (7.4-10.4); Monocytes # 0.4 K/mm3 (0.1-1.0); Monocytes % 7.5 % (1.7-9.3); Neutrophils # 2.8 K/mm3 (1.8-7.8); Neutrophils % 52.5 % (37.0-80.0); Platelet Count 294 K/mm3 (142-424); Red Blood Count 4.36 M/mm3 (4.60-6.20); Red Cell Distribution Width 14.1 % (11.5-17.5); White Blood Count 5.4 K/mm3 (4.8-10.8)
[2021-02-20 14:04] LABS: Alanine Aminotransferase 15 U/L (12-78); Albumin Level 4.2 g/dl (3.5-5.0); Albumin/Globulin Ratio 1.7 (1.1-1.8); Alkaline Phosphatase 70 U/L (38-126); Anion Gap 10.4 mEq/L (5-15); Aspartate Amino Transferase 28 U/L (17-59); Bilirubin,Total 0.2 mg/dl (0.2-1.3); Blood Urea Nitrogen 23 mg/dl (9-20); Calcium 9.4 mg/dl (8.4-10.2); Carbon Dioxide 28 mmol/L (22.0-30.0); Chloride 104 mmol/L (98-107); Chol/HDL Ratio 2.9 (1-3.5); Cholesterol 188 mg/dl (140-200); Estimated Glomerular Filt Rate 72 ml/min (>60); GFR (African American) 87 ML/MIN (>60); Globulin 2.5 g/dL (1.3-3.2); Glucose 91 mg/dl (74-100); HDL Cholesterol 65 mg/dl (40-60); Potassium 4.4 mmoL/L (3.5-5.1); Sodium 138 mmol/L (136-145); Total Protein,Serum 6.7 g/dl (6.3-8.2); Triglycerides 142 mg/dl (30-150); VLDL Cholesterol 28 mg/dL (0-40)
[2021-02-20 14:14] LABS: Direct LDL Cholesterol 97.23 mg/dL (100-129)
[2021-02-20 14:36] LABS: Prostate Specific Ag Screen < 0.1 ng/ml (0.0-4.0)
== END ==
PROVIDERS: Visit Provider Internal Medicine
DX: I10 Essential (primary) hypertension (principal); E78.5 Hyperlipidemia, unspecified; D53.8 Other specified nutritional anemias; R25.1 Tremor, unspecified; Z85.820 Personal history of malignant melanoma of skin; Z12.5 Encounter for screening for malignant neoplasm of prostate
CPT/HCPCS: 80053; 80061; 85025; G0103

== ENCOUNTER → 2021-02-27 14:20 | Outpatient (CLI) | payer MEDICARE, BC, SELFPAY ==
--- NOTE | 2021-02-27 14:24 | CT_ITS ---
FINAL REPORT TECHNIQUE: Axial images were obtained from the lung apex to the mid abdomen by computed tomography. Coronal reformatted images were obtained. This study was performed with techniques to keep radiation doses as low as reasonably achievable, (ALARA). Individualized dose reduction techniques using automated exposure control or adjustment of mA and/or kV according to the patient''s size were employed. CLINICAL HISTORY: LUNG NODULE FOLLOW UP COMPARISON: December 24, 2019 FINDINGS: There is no axillary adenopathy. There is no hilar or mediastinal adenopathy. Heart size is normal. There are [id number] coronary artery calcifications. There is no pericardial or pleural effusion. Limited images of the upper abdomen demonstrates bilateral renal masses which cannot be accurately characterized but were present on the prior exam and are not significantly changed. These may represent cysts. There are multiple small hepatic cysts. On the lung window images there is mild scarring. There are several right lung nodules including a 6 mm nodule in the right middle lobe that previously measured 6 mm and is seen on image 37. Other nodules in this region are also stable in size and appearance. There are several calcified granulomas. There are no new masses or nodules identified. IMPRESSION: Stable pulmonary nodules, favor benign. If indicated, additional follow-up chest CT in 12 months. No new mass or nodule identified. Reviewed, Interpreted and Dictated by Chay Fox III, MD Transcribed by Rere Rodriguez Authenticated by Chay Fox III, MD on 02/27/2021 04:26:41 PM [facility]
== END ==
PROVIDERS: PCP Internal Medicine; Visit Provider Internal Medicine
DX: R91.1 Solitary pulmonary nodule (principal)
CPT/HCPCS: 71250

== ENCOUNTER → 2021-08-20 13:29 | Outpatient (CLI) | payer MEDICARE, BC, SELFPAY ==
[2021-08-20 14:31] LABS: Chol/HDL Ratio 3.4 (1-3.5); Cholesterol 202 mg/dl (140-200); HDL Cholesterol 59 mg/dl (40-60); Triglycerides 194 mg/dl (30-150); VLDL Cholesterol 39 mg/dL (0-40)
[2021-08-20 14:43] LABS: Direct LDL Cholesterol 108.04 mg/dL (100-129)
[2021-08-20 15:21] LABS: Vitamin B12 370 pg/mL (239-931)
[2021-08-21 09:12] LABS: Chloride 107 mmol/L (98-107); Sodium 139 mmol/L (136-145)
[2021-08-21 09:14] LABS: Blood Urea Nitrogen 25 mg/dl (9-20); Estimated Glomerular Filt Rate 72 ml/min (>60); GFR (African American) 87 ML/MIN (>60)
[2021-08-21 09:15] LABS: Alanine Aminotransferase 13 U/L (12-78); Albumin Level 4.1 g/dl (3.5-5.0); Albumin/Globulin Ratio 1.5 (1.1-1.8); Alkaline Phosphatase 89 U/L (38-126); Aspartate Amino Transferase 29 U/L (17-59); Bilirubin,Total 0.2 mg/dl (0.2-1.3); Calcium 9.7 mg/dl (8.4-10.2); Carbon Dioxide 24 mmol/L (22.0-30.0); Globulin 2.8 g/dL (1.3-3.2); Glucose 100 mg/dl (74-100); Total Protein,Serum 6.9 g/dl (6.3-8.2)
== END ==
PROVIDERS: PCP Internal Medicine; Visit Provider Internal Medicine
DX: E78.5 Hyperlipidemia, unspecified (principal); I10 Essential (primary) hypertension; E53.8 Deficiency of other specified B group vitamins; R25.1 Tremor, unspecified; K21.9 Gastro-esophageal reflux disease without esophagitis; M15.0 Primary generalized (osteo)arthritis
CPT/HCPCS: 80053; 80061; 82607

== ENCOUNTER → 2022-02-18 12:23 | Outpatient (CLI) | payer MEDICARE, BC, SELFPAY ==
[2022-02-18 16:55] LABS: Basophils # 0.1 K/mm3 (0-0.2); Eosinophils # 0.1 K/mm3 (0.0-0.4); Eosinophils % 1.9 % (0.1-12.0); Hematocrit 38.6 % (42.0-52.0); Hemoglobin 12.5 g/dL (14.1-18.0); Lymphocytes # 1.8 K/mm3 (0.7-4.5); Lymphocytes % 36.2 % (10-50); Mean Corpuscular HGB Conc 32.3 g/dL (31.8-35.4); Mean Corpuscular Hemoglobin 31.6 pg (27.0-31.2); Mean Corpuscular Volume 97.9 fl (80-94); Mean Platelet Volume 8.5 fl (7.4-10.4); Monocytes # 0.3 K/mm3 (0.1-1.0); Monocytes % 6.5 % (1.7-9.3); Neutrophils # 2.7 K/mm3 (1.8-7.8); Neutrophils % 54.5 % (37.0-80.0); Platelet Count 295 K/mm3 (142-424); Red Blood Count 3.95 M/mm3 (4.60-6.20); Red Cell Distribution Width 14.3 % (11.5-17.5); White Blood Count 4.9 K/mm3 (4.8-10.8)
[2022-02-18 17:58] LABS: Alanine Aminotransferase 14 U/L (12-78); Albumin/Globulin Ratio 1.5 (1.1-1.8); Alkaline Phosphatase 76 U/L (38-126); Anion Gap 11.9 mEq/L (5-15); Aspartate Amino Transferase 22 U/L (17-59); Bilirubin,Total 0.2 mg/dl (0.2-1.3); Blood Urea Nitrogen 21 mg/dl (9-20); Calcium 8.6 mg/dl (8.4-10.2); Carbon Dioxide 26 mmol/L (22.0-30.0); Chloride 107 mmol/L (98-107); Chol/HDL Ratio 3.2 (1-3.5); Cholesterol 184 mg/dl (140-200); Estimated Glomerular Filt Rate 81 ml/min (>60); GFR (African American) 98 ML/MIN (>60); Globulin 2.6 g/dL (1.3-3.2); Glucose 86 mg/dl (74-100); HDL Cholesterol 58 mg/dl (40-60); Potassium 3.9 mmoL/L (3.5-5.1); Sodium 141 mmol/L (136-145); Total Protein,Serum 6.6 g/dl (6.3-8.2); Triglycerides 143 mg/dl (30-150); VLDL Cholesterol 29 mg/dL (0-40)
[2022-02-18 18:09] LABS: Direct LDL Cholesterol 93.88 mg/dL (100-129)
[2022-02-18 18:28] LABS: Prostate Specific Ag Screen < 0.1 ng/ml (0.0-4.0)
[2022-02-20 14:46] LABS: Iron 109 ug/dL (49-181)
[2022-02-20 14:55] LABS: Total Iron Binding Capacity 253 ug/dL (261-462)
== END ==
PROVIDERS: PCP Internal Medicine; Visit Provider Internal Medicine
DX: I10 Essential (primary) hypertension (principal); E78.5 Hyperlipidemia, unspecified; E53.8 Deficiency of other specified B group vitamins; D64.9 Anemia, unspecified; R25.1 Tremor, unspecified; M15.0 Primary generalized (osteo)arthritis; Z12.5 Encounter for screening for malignant neoplasm of prostate
CPT/HCPCS: 80053; 80061; 83540; 83550; 85025; G0103

== ENCOUNTER → 2022-04-09 14:34 | Outpatient (CLI) | payer MEDICARE, BC, SELFPAY ==
--- NOTE | 2022-04-09 14:41 | CT_ITS ---
FINAL REPORT TECHNIQUE: Thin section axial images were obtained from the lung apices through the upper abdomen without contrast. This study was performed with techniques to keep radiation doses as low as reasonably achievable (ALARA). Individualized dose reduction techniques using automated exposure control or adjustment of mA and/or kV according to the patient's size were employed. CLINICAL HISTORY: LUNG NODULE COMPARISON: 02/27/2021 and 12/24/2019 FINDINGS: There is no mediastinal, hilar, or axillary lymphadenopathy. There is no pleural or pericardial effusion. There is linear scarring at the left lung base. There is evidence of prior granulomatous disease. There are several stable nodules along the right major fissure and in the right middle lobe. No new nodule is identified. There is no consolidation.. Limited, unenhanced evaluation of the upper abdomen demonstrates bilateral hypodense renal lesions which are unchanged. There is no acute osseous abnormality. IMPRESSION: 1. Pulmonary nodules which are stable for greater than 2 years and considered benign. 2. No acute abnormality. Reviewed, Interpreted and Dictated by Sharita Payton MD Transcribed by Rere Rodriguez Authenticated and [facility]
== END ==
PROVIDERS: PCP Internal Medicine; Visit Provider Internal Medicine
DX: R91.1 Solitary pulmonary nodule (principal)
CPT/HCPCS: 71250

== ENCOUNTER → 2022-08-19 16:28 | Outpatient (CLI) | payer MEDICARE, BC, SELFPAY ==
[2022-08-19 17:54] LABS: Alanine Aminotransferase 17 U/L (12-78); Albumin/Globulin Ratio 1.5 (1.1-1.8); Alkaline Phosphatase 87 U/L (38-126); Anion Gap 11.5 mEq/L (5-15); Aspartate Amino Transferase 24 U/L (17-59); Bilirubin,Total 0.2 mg/dl (0.2-1.3); Blood Urea Nitrogen 25 mg/dl (9-20); Calcium 9.1 mg/dl (8.4-10.2); Carbon Dioxide 24 mmol/L (22.0-30.0); Chloride 109 mmol/L (98-107); Chol/HDL Ratio 3.2 (1-3.5); Cholesterol 190 mg/dl (140-200); Estimated Glomerular Filt Rate 81 ml/min (>60); GFR (African American) 98 ML/MIN (>60); Globulin 2.7 g/dL (1.3-3.2); Glucose 83 mg/dl (74-100); HDL Cholesterol 60 mg/dl (40-60); Potassium 4.5 mmoL/L (3.5-5.1); Sodium 140 mmol/L (136-145); Total Protein,Serum 6.7 g/dl (6.3-8.2); Triglycerides 163 mg/dl (30-150); VLDL Cholesterol 33 mg/dL (0-40)
[2022-08-19 18:02] LABS: Basophils % 0.8 % (0.1-2.0); Eosinophils # 0.1 K/mm3 (0.0-0.4); Eosinophils % 2.8 % (0.1-12.0); Hematocrit 40.7 % (42.0-52.0); Hemoglobin 12.6 g/dL (14.1-18.0); Lymphocytes # 1.7 K/mm3 (0.7-4.5); Mean Corpuscular HGB Conc 30.9 g/dL (31.8-35.4); Mean Corpuscular Hemoglobin 29.6 pg (27.0-31.2); Mean Platelet Volume 9.3 fl (7.4-10.4); Monocytes # 0.3 K/mm3 (0.1-1.0); Monocytes % 6.4 % (1.7-9.3); Neutrophils # 2.4 K/mm3 (1.8-7.8); Neutrophils % 53.1 % (37.0-80.0); Platelet Count 268 K/mm3 (142-424); Red Blood Count 4.24 M/mm3 (4.60-6.20); Red Cell Distribution Width 14.1 % (11.5-17.5); White Blood Count 4.6 K/mm3 (4.8-10.8)
[2022-08-19 18:07] LABS: Direct LDL Cholesterol 96.91 mg/dL (100-129)
[2022-08-19 18:26] LABS: Prostate Specific Ag Screen < 0.1 ng/ml (0.0-4.0)
[2022-08-20 15:47] LABS: Iron 141 ug/dL (49-181)
[2022-08-20 15:56] LABS: Total Iron Binding Capacity 263 ug/dL (261-462)
== END ==
LOC: LAB.DROPOF 16:30
PROVIDERS: PCP Internal Medicine; Visit Provider Internal Medicine
DX: I10 Essential (primary) hypertension (principal); E78.5 Hyperlipidemia, unspecified; E53.8 Deficiency of other specified B group vitamins; D64.9 Anemia, unspecified; K21.9 Gastro-esophageal reflux disease without esophagitis; M15.0 Primary generalized (osteo)arthritis; R25.1 Tremor, unspecified; Z85.46 Personal history of malignant neoplasm of prostate; Z12.5 Encounter for screening for malignant neoplasm of prostate
CPT/HCPCS: 80053; 80061; 83540; 83550; 85025; G0103

== ENCOUNTER → 2023-01-31 15:41 | Outpatient (CLI) | payer MEDICARE, BC, SELFPAY ==
[2023-01-31 15:47] LABS: Adenovirus F 40/41, stool Not Detected (NotDetected); Astrovirus Not Detected (NotDetected); Campylobacter Not Detected (NotDetected); Clostridium Difficile A/B, PCR Not Detected (NotDetected); Cryptosporidium Not Detected (NotDetected); Cyclospora Cayetanesis Not Detected (NotDetected); Entamoeba histolytica Not Detected (NotDetected); Enteroaggregative E coli Not Detected (NotDetected); Enteropathogenic E coli Not Detected (NotDetected); Enterotoxigenic E coli Not Detected (NotDetected); Giardia lamblia Not Detected (NotDetected); Norovirus Not Detected (NotDetected); Plesimonas Shigalloides, PCR Not Detected (NotDetected); Rotavirus A Not Detected (NotDetected); Salmonella, PCR Not Detected (NotDetected); Sapovirus Not Detected (NotDetected); Shiga-like toxin E coli Not Detected (NotDetected); Shigella Enterovasive E coli Not Detected (NotDetected); Vibrio Cholerae Not Detected (NotDetected); Vibrio, PCR Not Detected (NotDetected); Yersinia Entercolitica, PCR Not Detected (NotDetected)
== END ==
LOC: LAB.DROPOF 15:42
PROVIDERS: PCP Internal Medicine; Visit Provider Internal Medicine
DX: R19.7 Diarrhea, unspecified (principal)
CPT/HCPCS: 87506

== ENCOUNTER 2023-02-19 14:17 | Outpatient (CLI) | payer MEDICARE, BC, SELFPAY ==
[2023-02-19 15:30] LABS: Chloride 106 mmol/L (98-107); Sodium 140 mmol/L (136-145)
[2023-02-19 15:31] LABS: Potassium 4.3 mmoL/L (3.5-5.1)
[2023-02-19 15:33] LABS: Alanine Aminotransferase 16 U/L (12-78); Alkaline Phosphatase 90 U/L (38-126); Anion Gap 13.3 mEq/L (5-15); Aspartate Amino Transferase 26 U/L (17-59); Bilirubin,Total 0.3 mg/dl (0.2-1.3); Blood Urea Nitrogen 23 mg/dl (9-20); Carbon Dioxide 25 mmol/L (22.0-30.0); Cholesterol 187 mg/dl (140-200); Estimated Glomerular Filt Rate 81 ml/min (>60); GFR (African American) 98 ML/MIN (>60); Triglycerides 142 mg/dl (30-150); VLDL Cholesterol 28 mg/dL (0-40)
[2023-02-19 15:34] LABS: Albumin/Globulin Ratio 1.5 (1.1-1.8); Calcium 8.8 mg/dl (8.4-10.2); Chol/HDL Ratio 3.3 (1-3.5); Globulin 2.6 g/dL (1.3-3.2); Glucose 88 mg/dl (74-100); HDL Cholesterol 57 mg/dl (40-60); Total Protein,Serum 6.6 g/dl (6.3-8.2)
[2023-02-19 15:45] LABS: Direct LDL Cholesterol 96.52 mg/dL (100-129)
== END 2023-02-19 23:59 ==
LOC: LAB.DROPOF 14:18
PROVIDERS: PCP Internal Medicine; Visit Provider Internal Medicine
DX: I10 Essential (primary) hypertension (principal); E78.5 Hyperlipidemia, unspecified; E53.8 Deficiency of other specified B group vitamins
CPT/HCPCS: 80053; 80061

== ENCOUNTER 2023-04-16 10:58 | Outpatient (CLI) | payer MEDICARE, BC, SELFPAY ==
--- NOTE | 2023-04-16 11:05 | XR_ITS ---
FINAL REPORT CLINICAL HISTORY: RT POSTERIOR HIP PAIN.. pt has had 3 replacements FINDINGS: Right hip Three views were obtained. There is no acute fracture or dislocation. There is right hip arthroplasty without acute abnormality. Large calcifications are seen at the lateral aspect of the hip consistent with heterotopic ossification. There are postoperative changes from fusion of the left hip. IMPRESSION: Degenerative and postoperative changes. Heterotopic ossification. Reviewed, Interpreted and Dictated by Chay Fox III, MD Transcribed by Jessica Soria Authenticated and [facility]
== END 2023-04-16 23:59 ==
PROVIDERS: PCP Internal Medicine; Visit Provider Internal Medicine
DX: M25.551 Pain in right hip (principal); Z96.651 Presence of right artificial knee joint
CPT/HCPCS: 73502

== ENCOUNTER 2023-08-20 10:45 | Outpatient (CLI) | payer MEDICARE, BC, SELFPAY ==
[2023-08-20 17:45] LABS: Basophils % 0.9 % (0.1-2.0); Eosinophils # 0.1 K/mm3 (0.0-0.4); Eosinophils % 1.9 % (0.1-12.0); Hematocrit 40.3 % (42.0-52.0); Hemoglobin 12.9 g/dL (14.1-18.0); Lymphocytes # 1.7 K/mm3 (0.7-4.5); Lymphocytes % 34.2 % (10-50); Mean Corpuscular HGB Conc 32.1 g/dL (31.8-35.4); Mean Corpuscular Hemoglobin 31.4 pg (27.0-31.2); Monocytes # 0.4 K/mm3 (0.1-1.0); Monocytes % 7.3 % (1.7-9.3); Neutrophils # 2.7 K/mm3 (1.8-7.8); Neutrophils % 55.8 % (37.0-80.0); Platelet Count 269 K/mm3 (142-424); Red Blood Count 4.12 M/mm3 (4.60-6.20); Red Cell Distribution Width 14.6 % (11.5-17.5); White Blood Count 4.8 K/mm3 (4.8-10.8)
[2023-08-20 18:14] LABS: Alanine Aminotransferase 17 U/L (12-78); Albumin Level 4.1 g/dl (3.5-5.0); Albumin/Globulin Ratio 1.4 (1.1-1.8); Alkaline Phosphatase 98 U/L (38-126); Anion Gap 12.3 mEq/L (5-15); Aspartate Amino Transferase 27 U/L (17-59); Bilirubin,Total 0.4 mg/dl (0.2-1.3); Blood Urea Nitrogen 29 mg/dl (9-20); Calcium 9.2 mg/dl (8.4-10.2); Carbon Dioxide 23 mmol/L (22.0-30.0); Chloride 109 mmol/L (98-107); Chol/HDL Ratio 3.7 (1-3.5); Cholesterol 213 mg/dl (140-200); Estimated Glomerular Filt Rate 72 ml/min (>60); GFR (African American) 87 ML/MIN (>60); Globulin 2.9 g/dL (1.3-3.2); Glucose 87 mg/dl (74-100); HDL Cholesterol 57 mg/dl (40-60); Potassium 4.3 mmoL/L (3.5-5.1); Sodium 140 mmol/L (136-145); Triglycerides 140 mg/dl (30-150); VLDL Cholesterol 28 mg/dL (0-40)
[2023-08-20 18:25] LABS: Direct LDL Cholesterol 109.83 mg/dL (100-129)
[2023-08-20 18:45] LABS: Prostate Specific Ag Screen < 0.1 ng/ml (0.0-4.0)
== END 2023-08-20 23:59 | disposition home or self-care (01) ==
LOC: LAB.DROPOF 08-21 08:50
PROVIDERS: PCP Internal Medicine; Visit Provider Internal Medicine
DX: I10 Essential (primary) hypertension (principal); E78.5 Hyperlipidemia, unspecified; Z12.5 Encounter for screening for malignant neoplasm of prostate
CPT/HCPCS: 80053; 80061; 85025; G0103

== ENCOUNTER 2023-09-22 15:55 | Outpatient (CLI) | payer MEDICARE, BC, SELFPAY ==
[2023-09-22 14:43] LABS: Iron 108 ug/dL (49-181)
[2023-09-22 14:53] LABS: Total Iron Binding Capacity 249 ug/dL (261-462)
[2023-09-29 15:02] LABS: Ferritin 59.7 ng/ml (17.9-464)
== END 2023-09-22 23:59 | disposition home or self-care (01) ==
LOC: LAB.DROPOF 15:56
PROVIDERS: PCP Internal Medicine; Visit Provider Internal Medicine
DX: D64.9 Anemia, unspecified
CPT/HCPCS: 82728; 83540; 83550

== ENCOUNTER 2023-12-09 14:30 | Outpatient (CLI) | payer MEDICARE, BC, SELFPAY ==
[2023-12-09 15:56] LABS: Basophils # 0.1 K/mm3 (0-0.2); Eosinophils # 0.1 K/mm3 (0.0-0.4); Eosinophils % 2.2 % (0.1-12.0); Hematocrit 38.5 % (42.0-52.0); Hemoglobin 12.9 g/dL (14.1-18.0); Lymphocytes # 1.8 K/mm3 (0.7-4.5); Lymphocytes % 29.8 % (10-50); Mean Corpuscular HGB Conc 33.5 g/dL (31.8-35.4); Mean Corpuscular Hemoglobin 31.8 pg (27.0-31.2); Mean Corpuscular Volume 94.8 fl (80-94); Monocytes # 0.4 K/mm3 (0.1-1.0); Monocytes % 6.6 % (1.7-9.3); Neutrophils # 3.6 K/mm3 (1.8-7.8); Neutrophils % 60.4 % (37.0-80.0); Platelet Count 274 K/mm3 (142-424); Red Blood Count 4.06 M/mm3 (4.60-6.20); Red Cell Distribution Width 13.9 % (11.5-17.5); White Blood Count 5.9 K/mm3 (4.8-10.8)
== END 2023-12-09 23:59 | disposition home or self-care (01) ==
LOC: LAB.DROPOF 12-10 09:47
PROVIDERS: PCP Internal Medicine; Visit Provider Internal Medicine
DX: R53.83 Other fatigue (principal)
CPT/HCPCS: 85025

== ENCOUNTER 2024-02-18 10:00 | Outpatient (CLI) | payer MEDICARE, BC, SELFPAY ==
[2024-02-18 15:26] LABS: Alanine Aminotransferase 19 U/L (12-78); Albumin/Globulin Ratio 1.6 (1.1-1.8); Alkaline Phosphatase 87 U/L (38-126); Aspartate Amino Transferase 35 U/L (17-59); Bilirubin,Total 0.4 mg/dl (0.2-1.3); Blood Urea Nitrogen 22 mg/dl (9-20); Calcium 9.1 mg/dl (8.4-10.2); Carbon Dioxide 26 mmol/L (22.0-30.0); Chloride 101 mmol/L (98-107); Chol/HDL Ratio 2.5 (1-3.5); Cholesterol 150 mg/dl (140-200); Estimated Glomerular Filt Rate 81 ml/min (>60); GFR (African American) 98 ML/MIN (>60); Globulin 2.5 g/dL (1.3-3.2); Glucose 86 mg/dl (74-100); HDL Cholesterol 60 mg/dl (40-60); Sodium 136 mmol/L (136-145); Total Protein,Serum 6.5 g/dl (6.3-8.2); Triglycerides 141 mg/dl (30-150); VLDL Cholesterol 28 mg/dL (0-40)
[2024-02-18 15:37] LABS: Direct LDL Cholesterol 59.99 mg/dL (100-129)
== END 2024-02-18 23:59 | disposition home or self-care (01) ==
LOC: LAB.DROPOF 02-20 09:57
PROVIDERS: PCP Internal Medicine; Visit Provider Internal Medicine
DX: I10 Essential (primary) hypertension (principal); E78.5 Hyperlipidemia, unspecified
CPT/HCPCS: 80053; 80061

== ENCOUNTER 2024-03-15 17:20 | Outpatient (CLI) | payer MEDICARE, BC, SELFPAY ==
[2024-03-15 19:45] LABS: Creatine Kinase 76 U/L (55-170); Iron 160 ug/dL (49-181)
[2024-03-15 19:54] LABS: Total Iron Binding Capacity 282 ug/dL (261-462)
[2024-03-15 20:15] LABS: Thyroid Stimulating Hormone 3.08 uIU/mL (0.465-4.68)
== END 2024-03-15 23:59 | disposition home or self-care (01) ==
LOC: LAB.DROPOF 17:20
PROVIDERS: PCP Internal Medicine; Visit Provider Internal Medicine
DX: M79.10 Myalgia, unspecified site (principal); K21.00 Gastro-esophageal reflux disease with esophagitis, without bleeding; R11.0 Nausea; R53.83 Other fatigue; D64.9 Anemia, unspecified
CPT/HCPCS: 82550; 83540; 83550; 84443

== ENCOUNTER 2024-04-22 11:49 | Outpatient (CLI) | payer MEDICARE, BC, SELFPAY ==
[2024-04-26 15:53] LABS: Pancreatic Elastase, Fecal 460 (>200)
== END 2024-04-22 23:59 | disposition home or self-care (01) ==
LOC: LAB 11:50
PROVIDERS: PCP Internal Medicine; Visit Provider Nurse Practitioner Family
DX: R14.0 Abdominal distension (gaseous) (principal); R19.5 Other fecal abnormalities
CPT/HCPCS: 82656

== ENCOUNTER 2024-06-03 10:38 | Outpatient (CLI) | payer MEDICARE, BC, SELFPAY ==
--- NOTE | 2024-06-03 10:41 | XR_ITS ---
FINAL REPORT TECHNIQUE: Chest PA & Lateral CLINICAL HISTORY: Fall, right lateral chest pain COMPARISON: None FINDINGS: Two views of the chest were performed. The heart size is normal. The mediastinum is within normal limits. There is no acute cardiopulmonary process. There are no pleural effusions. There is no pneumothorax. The bony thorax appears intact. IMPRESSION: No acute cardiopulmonary process. Reviewed, Interpreted and Dictated by Magnus Gonzalez MD Transcribed by Reina Garduno Authenticated and [facility]
--- NOTE | 2024-06-03 10:41 | XR_ITS ---
FINAL REPORT CLINICAL HISTORY: Fall, right lateral elbow pain COMPARISON: None FINDINGS: RIGHT ELBOW Three views of the right elbow were obtained. There is no acute fracture or dislocation. There are marked advanced hypertrophic changes of osteoarthritis, particularly at the medial compartment joint space. There are multiple ossific densities about the elbow probably due to intra-articular loose bodies. Soft tissue edema is noted posterior to the olecranon. IMPRESSION: Advanced osteoarthritis, likely posttraumatic, with multiple intra-articular loose bodies. Reviewed, Interpreted and Dictated by Magnus Gonzalez MD Transcribed by Reina Garduno Authenticated and [facility]
== END 2024-06-03 23:59 | disposition home or self-care (01) ==
LOC: RAD 10:40
PROVIDERS: PCP Internal Medicine; Visit Provider Internal Medicine
DX: M25.521 Pain in right elbow (principal); R07.9 Chest pain, unspecified
CPT/HCPCS: 71046; 73080

== ENCOUNTER 2024-08-16 10:27 | Outpatient (CLI) | payer MEDICARE, BC, SELFPAY ==
--- NOTE | 2024-08-16 10:35 | XR_ITS ---
FINAL REPORT CLINICAL HISTORY: Lumbar back pain, bilateral buttock pain COMPARISON: None FINDINGS: LUMBOSACRAL SPINE SERIES Five views of the lumbosacral spine were obtained. There is no fracture present. There is no malalignment. There is moderately advanced disc space narrowing L2-3 through L5-S1. Prominent anterior osteophyte formation is noted at L3-4 and L5-S1. The facets are properly aligned. IMPRESSION: Advanced changes of degenerative disc disease L2-3 through L5-S1. Reviewed, Interpreted and Dictated by Magnus Gonzalez MD Transcribed by Altagracia Ward Authenticated and [facility]
--- NOTE | 2024-08-16 10:35 | XR_ITS ---
FINAL REPORT CLINICAL HISTORY: Bilateral buttock pain COMPARISON: 04/16/2023 FINDINGS: SINGLE VIEW PELVIS: A single view of the pelvis was obtained. Right hip total joint prosthesis is noted. There is a sideplate and screws securing the left hip joint space consistent with fusion. Heterotopic bone formation is seen lateral to the right hip. There is no acute fracture or dislocation. Soft tissues are unremarkable. IMPRESSION: Postoperative and degenerative/chronic changes previous with no significant change since the previous exam. Reviewed, Interpreted and Dictated by Magnus Gonzalez MD Transcribed by Altagracia Ward Authenticated and [facility]
--- OUTSIDE RECORDS SUMMARY | 2024-08-16 10:39 | XMS_ITS | Clinical Summary ---
Author Organization [facility] Address [address] [id number] Care Team Providers Care Geological Manager Name Role Phone Unavailable Primary Care Provider Unavailabl e Allergies No known active allergies Medications Psyllium Husk powder 06/07/2015 Active famotidine (Pepcid) 20 MG tablet 06/07/2015 Active lisinopril 40 MG tablet 06/07/2015 Active nadolol (Corgard) 20 MG tablet 06/07/2015 Active omeprazole (PriLOSEC) [address] capsule 06/07/2015 Active polyethylene glycol (Miralax) 17 GM/SCOOP powder 06/07/2015 Active primidone (Mysoline) 250 MG tablet 06/07/2015 Active simvastatin (Zocor) 40 MG tablet 06/07/2015 Active topiramate (Topamax) 100 MG tablet 06/07/2015 Active ezetimibe (Zetia) 10 MG tablet 06/07/2015 Active calcium-vitamin D 500-200 MG-UNIT tablet 06/07/2015 Active Social History Tobacco Use Types Packs/Day Years Used Date Smoking Tobacco: Never Smokeless Tobacco: Never Alcohol Use Standard Drinks/Week Comments Never 0 (1 standard drink = 0.6 oz pur e alcohol) Sex and Gender Information Value Date Recorded Sex Assigned at Not on file Legal Sex Male 7:53 PM EDT Gender Identity Not on file Sexual Orientation Not on file Last Filed Vital Signs Vital Sign Reading Time Taken Comments Blood Pressure 141/84 07/17/2020 2:27 PM EDT Pulse 84 07/17/2020 2:27 PM EDT Temperature - - Respiratory Rate - - Oxygen Saturation - - Inhaled Oxygen Concentration - - Weight 71.7 kg (158 lb 1.1 oz) 07/17/2020 2:27 P M EDT Height 157.5 cm (5' 2 ) 07/17/2020 2:27 PM EDT Body Mass Index 28.91 07/17/2020 2:27 PM EDT Plan of Treatment Health Maintenance Due Date Last Done Comments [facility]-Depression Screening 1940 [facility]-Infant/Child/Adol SDOH Screenings 1940 [facility]- SDOH Screenings 1958 [facility]-Adult SDOH Screenings 1958 [facility]-DTaP,Tdap,and Td Vaccine s (1 - Tdap) 10/06/1959 [facility]-Pneumococcal Vaccine: 50 + Years (1 of 1 - PCV) 1990 [facility]-Zoster Vaccines (1 of 2) 1990 [facility]-RSV Vaccine: 60+ Years o r (1 - 1-dose 75+ series) 10/06/2015 [id number] Vaccine (1 - 20 24-25 season) 2023 [facility]-Influenza Vaccine (#1) 2024 HPV Vaccines Aged Out No longer eligi ble based on patient's age to complete this topic [facility]-HIB Vaccines Aged Out No longer e ligible based on patient's age to complete this topic [facility]-Hepatitis A Vaccines Aged Out No longer eligible based on patient's age to complete this topic [facility]-IPV Vaccines Aged Out No longer e ligible based on patient's age to complete this topic [facility]-Rotavirus Vaccines Aged Out No lo nger eligible based on patient's age to complete this topic Insurance MEDICARE ANTHEM
[2024-08-16 14:01] LABS: Hematocrit 39.2 % (42.0-52.0); Hemoglobin 12.1 g/dL (14.1-18.0); Immature Granulocytes % 0.4 %; Mean Corpuscular HGB Conc 30.9 g/dL (31.8-35.4); Mean Corpuscular Hemoglobin 29.9 pg (27.0-31.2); Mean Corpuscular Volume 96.8 fl (80-94); Nucleated Red Blood Cells % 0 %; Platelet Count 248 K/mm3 (142-424); Red Blood Count 4.05 M/mm3 (4.60-6.20); Red Cell Distribution Width-SD 50.2 fL; White Blood Count 5.0 K/mm3 (4.8-10.8)
[2024-08-16 14:36] LABS: Alanine Aminotransferase 14 U/L (12-78); Albumin Level 4.2 g/dl (3.5-5.0); Albumin/Globulin Ratio 1.6 (1.1-1.8); Alkaline Phosphatase 89 U/L (38-126); Anion Gap 15.5 mEq/L (5-15); Aspartate Amino Transferase 24 U/L (17-59); Bilirubin,Total 0.3 mg/dl (0.2-1.3); Blood Urea Nitrogen 20 mg/dl (9-20); Calcium 9.2 mg/dl (8.4-10.2); Carbon Dioxide 23 mmol/L (22.0-30.0); Chloride 105 mmol/L (98-107); Cholesterol 183 mg/dl (140-200); Creatinine,Serum 1.00 mg/dl (0.66-1.25); Estimated Glomerular Filt Rate 71 ml/min (>60); GFR (African American) 86 ML/MIN (>60); Globulin 2.6 g/dL (1.3-3.2); Glucose 94 mg/dl (74-100); HDL Cholesterol 58 mg/dl (40-60); Potassium 4.5 mmoL/L (3.5-5.1); Sodium 139 mmol/L (136-145); Total Protein,Serum 6.8 g/dl (6.3-8.2); Triglycerides 153 mg/dl (30-150)
[2024-08-16 15:14] LABS: Prostate Specific Ag, Diagnost < 0.064 ng/ml (0.0-4.0)
== END 2024-08-16 23:59 | disposition home or self-care (01) ==
LOC: RAD 10:28
PROVIDERS: PCP Internal Medicine; Visit Provider Internal Medicine
DX: M51.379 Other intervertebral disc degeneration, lumbosacral region without mention of lumbar back pain or lower extremity pain (principal); M16.9 Osteoarthritis of hip, unspecified; M51.369 Other intervertebral disc degeneration, lumbar region without mention of lumbar back pain or lower extremity pain; I10 Essential (primary) hypertension; E78.5 Hyperlipidemia, unspecified; Z98.890 Other specified postprocedural states; Z96.641 Presence of right artificial hip joint; Z85.46 Personal history of malignant neoplasm of prostate
CPT/HCPCS: 72110; 72170; 80053; 80061; 84153; 85025

== ENCOUNTER 2025-01-26 12:22 | Day surgery (SDC) | payer MEDICARE, BC, SELFPAY ==
--- NOTE | 2025-01-21 11:34 | EXP.HP ---
History of Present Illness *Admission Date: 01/26/25 *History of present illness: Mr. Greenberg is an 84-year-old gentleman who is here for diagnostic EGD. He does have a long history of GERD and is on omeprazole 40 mg by mouth daily along with famotidine and Rolaids. He still gets breakthrough symptoms and often his symptoms will improve with drinking a carbonated beverage. Belching. He does report some early satiety, nausea and nervous stomach . He does have bloating and some belching. He also has some loose or mushy stools. His fecal elastase testing was normal. The patient did have a colonoscopy with ri in 2020 and had a single polyp (tubular adenoma) and left-sided diverticulosis. The examination is deemed medically necessary for diagnostic EGD. The patient has been seen, interviewed and examined prior to the procedure by both myself and the anesthesia provider. [facility] Disclaimer: The information contained in this section may have been updated after the patient was seen, as this information can be updated by other users. Medical History Hyperlipidemia Hypertension Skin cancer Prostate cancer Surgical History History of appendectomy History of hip surgery Hx of total knee replacement History of hip replacement History of prostatectomy Family History Other No significant family history Social History Smoking Status: Never smoker alcohol intake: never substance use type: denies use current occupational status: retired Travel in the last 8 weeks?: None household members: spouse housing: house caffeine: No Have you lived/traveled outside US in past 30 days?: No Contact w/someone who lives/traveled outside US past 30 days?: No Exposure to someone with infectious disease in past 14 days?: No Do you have a fever (greater than 100.4 F or 38 C)?: No Have you tested positive for COVID-19?: No Exposed to someone with COVID-19 in past 14 days?: No Do you have a sore throat?: No Do you have a cough?: No Do you have any weakness?: No Do you have any diarrhea?: No Are you experiencing any unusual bleeding?: No Do you have any muscle aches/pain?: No Do you have any abdominal pain?: No Are you experiencing loss of taste or smell?: No Other Medical History Have you received the Flu Vaccine for this season: Yes Have you received the Pneumonia Vaccine: No Review of Systems Review of Systems Review of systems (narrative): Negative *Cardiovascular Comments: Negative *Gastrointestinal Comments: Negative *Genitourinary Comments: Negative *Musculoskeletal Comments: Negative *Neurologic Comments: Negative Meds Home Medications and Allergies Home Medications ?Medication ?Instructions ?Recorded ?Confirmed ?Type buspirone 5 mg tablet 5 mg PO QHS #30 tabs 07/21/24 01/18/25 Rx primidone 250 mg tablet See Rx Instructions .Route 08/18/24 01/18/25 Rx .COMPLEX #270 tabs topiramate 100 mg tablet 100 mg PO HS Tremors #90 tabs 08/18/24 01/18/25 Rx omeprazole 40 mg capsule,delayed 40 mg PO DAILY #90 caps 08/25/24 01/18/25 Rx release hydrochlorothiazide 12.5 mg tablet See Rx Instructions .Route 09/15/24 01/18/25 Rx .COMPLEX #90 tabs simvastatin 40 mg tablet See Rx Instructions .Route 10/26/24 01/18/25 Rx .COMPLEX #90 tabs ezetimibe 10 mg tablet See Rx Instructions .Route 11/02/24 01/18/25 Rx .COMPLEX #90 tabs naproxen 500 mg tablet 500 mg PO HS #30 tabs 11/17/24 01/18/25 Rx famotidine 20 mg tablet See Rx Instructions .Route 11/23/24 01/18/25 Rx .COMPLEX #90 tabs lisinopril 40 mg tablet See Rx Instructions .Route 12/08/24 01/18/25 Rx .COMPLEX #90 tabs acetaminophen 500 mg tablet 500 mg PO Q6H PRN Pain 01/18/25 01/18/25 History (Tylenol Extra Strength) chlorpheniramine-acetaminophen 2 1 tab PO Q4-6H PRN sinuses 01/18/25 01/18/25 History mg-325 mg tablet (Coricidin HBP Cold and Flu) nadolol 20 mg tablet See Rx Instructions .Route 01/25/25 Rx .COMPLEX #90 tabs buspirone 5 mg tablet 5 mg PO DAILY 01/26/25 01/26/25 History New Prescriptions to Start Prescriptions: Allergies Allergy/AdvReac Type Severity Reaction Status Date / Time No Known Allergies Allergy Verified 01/25/25 12:59 Exam *Routine HEENT Exam Head: Present normocephalic Eye: Present EOMI and PERRL ENT: Present mucous membranes moist *Routine Neck Exam Neck: Present supple *Routine Respiratory Exam Respiratory: Present CTA bilaterally *Routine Cardiovascular Exam Cardiovascular: Present RRR *Routine Abdominal Exam Abdominal: Present soft and normoactive bowel sounds; Absent tenderness *Routine Rectal Exam Rectal:: deferred *Routine Genitalia Exam Genitalia:: deferred *Routine Extremities Exam Extremities: Absent cyanosis, clubbing or edema *Routine Skin Exam Skin: Present warm; Absent rash *Routine Neurological Exam Neurological: Present alert and oriented X3 Assessment and Plan *Assessment and plan (1) Early satiety: Status: Acute Category: Medical Code(s): R68.81 - Early satiety (2) Epigastric pain: Status: Acute Category: Medical Code(s): R10.13 - Epigastric pain (3) Chronic GERD: Status: Chronic Category: Medical Code(s): K21.9 - Gastro-esophageal reflux disease without esophagitis (4) Nausea: Status: Acute Category: Medical Code(s): R11.0 - Nausea (5) Bloating: Status: Acute Category: Medical Code(s): R14.0 - Abdominal distension (gaseous) (6) Belching: Status: Acute Category: Medical Code(s): R14.2 - Eructation Plan A/P: 1. Chronic GERD with bloating, early satiety, dyspepsia/epigastric pain and belching is the preprocedural diagnosis. The patient also has some nausea. The patient will be anesthetized/sedated using MAC sedation. The patient has been seen and examined. Cardiac and lung assessment prior to the examination is stable. Proceed with planned diagnostic EGD.
[2025-01-25 13:07] VITALS: BMI 25.7
--- NOTE | 2025-01-26 07:11 | P.PCN_ITS ---
[facility] Procedure Note Date: 01/26/25 Time: 13:07 Procedure Note:: Upper Endoscopy Procedure Report: Esophagogastroduodenoscopy with cold biopsies and TTS balloon dilation Endoscopost: Jose Thomas II, MD Referring Physician: Marbin Hill MD Date of Procedure: January 26, 2025 Equipment: Olympus GIF-1100 standard upper endoscope Sedation: MAC sedation Indications: Mr. Greenberg is an 84-year-old gentleman who is here for diagnostic EGD. He does have a long history of GERD and is on omeprazole 40 mg by mouth daily along with famotidine and Rolaids. He still gets breakthrough symptoms and often his symptoms will improve with drinking a carbonated beverage and belching. He does report some upper abdominal discomfort, early satiety, nausea and nervous stomach with nausea. He does have bloating and some belching. He does get some dysphagia with cornbread and milk. He did have an EGD with or 15 or 20 years ago. He also has some loose or mushy stools. His fecal elastase testing was normal. The patient did have a colonoscopy with or in 2020 and had a single polyp (tubular adenoma) and left-sided diverticulosis. The examination is deemed medically necessary for diagnostic EGD. Procedure: Prior to the procedure, a history and physical exam was performed, and patient's medications and allergies were reviewed. The risks, benefits and alternatives of the sedation and procedure were discussed with the patient. All questions were answered and informed consent was obtained. The patient was brought to the procedure room. Patient identification and proposed procedure were verified by the physician and the nurse. The patient was placed in a left lateral decubitus position and the scope was passed under direct vision. Throughout the procedure, the patient's blood pressure, pulse, and oxygen saturations were monitored continuously. The upper GI endoscopy was accomplished without difficulty. The patient tolerated the procedure well. Findings: The scope was passed directly into the upper esophagus and advanced to the third portion of the duodenum. The post bulbar duodenum, ampulla and duodenal bulb were normal with normal mucosa and conniventes. 2 cold biopsies were taken from the second portion of the duodenum for the disaccharidase assay. The scope was withdrawn through a normal duodenal bulb and pylorus into the stomach. There was some bile reflux with mild linear reactive gastropathy of the antrum. The body and fundus of the stomach were normal. Upon retroflexion there was a very small sliding 1 to 2 cm hiatal hernia. Cold biopsies were taken from the antrum. The scope was then withdrawn into the esophagus. There was no evidence of reflux esophagitis. There was a single tongue of salmon- colored mucosa that was biopsied to rule out intestinal metaplasia. There were no rings, strictures, corrugation or webs. There were tertiary contractions and evidence of mild esophageal dysmotility. The entire esophagus was dilated to 60 Setswana/20 mm with a TTS hydrostatic balloon. There was mild resistance at the cricopharyngeus. The remainder of the esophageal mucosa was normal. Impression: 1. Nonerosive GERD with mild esophageal dysmotility and very small sliding 1 to 2 cm hiatal hernia 2. Bile reflux with mild linear reactive gastropathy of antrum Plan: I will follow-up the biopsies and disaccharidase assay. 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 We will discuss additional treatment options.
[2025-01-26 12:43] VITALS: BP 167/88; PULSE 59; RESP 18; TEMP 36.2; O2SAT 97; BMI 25.7
[2025-01-26] MEDS: LACTATED RINGERS 1000ML 1,000 ML 50 ML IV (12:47)
--- NOTE | 2025-01-26 12:51 | P.PNANES_ITS ---
[facility] Disclaimer: The information contained in this section may have been updated after the patient was seen, as this information can be updated by other users. Medical History Hyperlipidemia Hypertension Skin cancer Prostate cancer Surgical History History of appendectomy History of hip surgery Hx of total knee replacement History of hip replacement History of prostatectomy Family History Other No significant family history Social History Smoking Status: Never smoker alcohol intake: never substance use type: denies use current occupational status: retired Travel in the last 8 weeks?: None household members: spouse housing: house caffeine: No Have you lived/traveled outside [place] in past 30 days?: No Contact w/someone who lives/traveled outside US past 30 days?: No Exposure to someone with infectious disease in past 14 days?: No Do you have a fever (greater than 100.4 F or 38 C)?: No Have you tested positive for COVID-19?: No Exposed to someone with COVID-19 in past 14 days?: No Do you have a sore throat?: No Do you have a cough?: No Do you have any weakness?: No Do you have any diarrhea?: No Are you experiencing any unusual bleeding?: No Do you have any muscle aches/pain?: No Do you have any abdominal pain?: No Are you experiencing loss of taste or smell?: No [facility] Anesthesia Checklist Patient Identification Patient Identification: Arm Band and Verbal (Name & ) Structural Data Admitted From: Home Planned Operative Procedure/s: EGD Consent for Planned Operative Procedure(s) Verified: Yes Verified Documents: Surgical Consent NPO Status Verified Time NPO: 00:00 Chart Verification Results Verified: None Additional verifications Anesthesia Reactions: No Hx Blood Transfusions: No Blood Transfusion Reaction: No Airway Assessment Mallampati Score:: Class II C-Spine Mobility Assessed: Yes TMJ Mobility Assessed: Yes Dentition: Edentulous Neurological Assessment Level of Consciousness: Awake, Alert and Appropriate Hx Seizures: No Numbness or tingling in extremities: No Anesthesia Plan Anesthesia Risk discussed: Yes Anesthesia Plan: Verified ASA Class: II Anesthesia Type: MAC
[2025-01-26 13:10] VITALS: BP 91/58; PULSE 67; RESP 16; O2SAT 92
[2025-01-26 13:20] VITALS: BP 87/50; PULSE 68; O2SAT 93
[2025-01-26 13:30] VITALS: BP 99/57; PULSE 59; O2SAT 96
[2025-01-26 13:40] VITALS: BP 102/64; PULSE 54; O2SAT 95
[2025-01-31 13:29] LABS: Interpretation Notes (.); Lactase 38.31 (>/= 14.0); Maltase 286.21 (>/= 110.0); Palatinase 21.21 (>/= 8.5); Reference Notes (.); Sucrase 72.18 (>/= 25.0)
== END 2025-01-26 13:40 | disposition home or self-care (01) ==
PROVIDERS: PCP Internal Medicine; Visit Provider Internal Medicine Gastroenterology
PROC: 0DJ08ZZ Inspection of Upper Intestinal Tract, Via Natural or Artificial Opening Endoscopic (ICD-10-PCS; CPT 43239; principal; 2025-01-26 14:00)
DX: K22.4 Dyskinesia of esophagus (principal); K22.89 Other specified disease of esophagus; K21.9 Gastro-esophageal reflux disease without esophagitis; K44.9 Diaphragmatic hernia without obstruction or gangrene; Z79.899 Other long term (current) drug therapy; Z86.0101 Personal history of adenomatous and serrated colon polyps
CPT/HCPCS: 43239; 43249; 82657; 88305; C1726; J2003; J2704; J7120